=== PATIENT | female | born 1965 | race Caucasian/White ===

== ENCOUNTER 2017-09-26 11:47 | Emergency (ER) | payer BC, SELFPAY ==
[2017-09-26 11:50] VITALS: BP 143/95; PULSE 107; RESP 16; TEMP 36.6; O2SAT 99; BMI 31.4
[2017-09-26] MEDS: 0.9% Normal Saline 1,000 ML 1000 ML IV (12:51)
[2017-09-26] MEDS: Ondansetron 4 MG/2 ML Vial IV (12:53)
[2017-09-26] MEDS: Dicyclomine 20 MG/2 ML Vial IM (12:53)
[2017-09-26 13:18] LABS: Absolute Lymphocyte Count 1.35 X10^3/ul (0.83-4.51); Absolute Neutrophil Count 2.6 X10^3/uL (2.0-7.7); Basophil# 0.01 X10^3/uL; Basophil% 0.2 % (0-1); Eosinophil# 0.07 X10^3/uL; Eosinophils% 1.5 % (0-5); Hematocrit 40.5 % (37-47); Hemoglobin 13.3 g/dl (12.0-15.0); Lymphocyte # 1.35 X10^3/ul (4.0); Lymphocyte % 29.5 % (19-41); Mean Corp Hgb Conc 32.8 g/gl (32-36); Mean Corpuscular Hgb 30.4 pg (27.0-32.0); Mean Corpuscular Volume 92.5 fL (81-99); Mean Platelet Vol. 9.3 fl (6.2-12.0); Monocyte# 0.56 X10^3/uL; Monocyte% 12.3 % (0-10); Neutrophil # 2.58 X10^3/uL (2.7-7.7); Neutrophil % 56.5 % (47-70); Platelet Count 207 K/mm3 (150-450); RBC Distribution Width CV 12.1 % (11.6-14.6); RBC Distribution Width SD 39.8 fl (35.1-43.9); Red Blood Count 4.38 M/mm3 (4.2-5.4); White Blood Count 4.6 K/mm3 (4.4-11.0)
[2017-09-26 13:21] LABS: POSITIVE COUNT NO; POSITIVE DIFFERENTIAL NO; POSITIVE MORPHOLOGY NO
[2017-09-26 14:08] VITALS: RESP 16
[2017-09-26 14:18] LABS: Anion Gap 4 (5-15); BUN 13 mg/dL (7-18); BUN/Creat Ratio 18.8 RATIO (10-20); Calcium,Total 8.7 mg/dL (8.5-10.1); Chloride 111 mmol/L (98-107); Creatinine, Serum 0.69 mg/dL (0.55-1.02); EST Glomerular Filtration Rate 94 mL/min (>60); Est Glom Filt Rate - Afr Amer 114 mL/min (>60); Estimated Creatinine Clearance 95.12 ml/min; Glucose 86 mg/dL (74-106); Potassium 3.6 mmol/L (3.5-5.1); Sodium Level 142 mmol/L (136-145)
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
--- NOTE | 2017-09-26 14:36 | ED.DEP ---
ED Disposition - Plan for ED Patient: Chief Complaint: Nausea/Vomiting/Diarrhea Instructions: ED Gastroenteritis Viral Prescriptions: Ondansetron [Zofran Odt] 4 mg PO Q8H PRN PRN #10 tab PRN Reason: Nausea Dicyclomine HCl [Bentyl] 20 mg PO TIDAC #20 cap Referrals: Carol Campos [Primary Care Provider] - 3-5 Days
[2017-09-26 14:40] VITALS: BP 162/96; PULSE 96; RESP 14; O2SAT 96
== END 2017-09-26 14:45 | disposition home or self-care (01) ==
PROVIDERS: Emergency Provider Emergency Medicine; Family Provider Family Medicine; PCP Family Medicine
DX: A08.4 Viral intestinal infection, unspecified (principal); I25.10 Atherosclerotic heart disease of native coronary artery without angina pectoris; Z79.82 Long term (current) use of aspirin; Z79.899 Other long term (current) drug therapy; Z95.1 Presence of aortocoronary bypass graft; I25.2 Old myocardial infarction
CPT/HCPCS: 80048; 85025; 96361; 96372; 96374; 99283; J7030; J2405

== ENCOUNTER 2018-08-27 01:41 | Emergency (ER) | payer BC, SELFPAY ==
[2018-08-27 01:42] VITALS: BP 162/89; PULSE 70; RESP 16; RESP 18; TEMP 36.4; O2SAT 99; BMI 31.8
[2018-08-27 01:46] VITALS: O2SAT 100
[2018-08-27 02:16] VITALS: O2SAT 100
--- NOTE | 2018-08-27 02:19 | RAD_ITS ---
STUDY: X-RAY CHEST REASON FOR EXAM: Female, 52 years old. Shortness of breath, history of lung cancer TECHNIQUE: Single AP portable view of the chest. COMPARISON: 10/20/2016. FINDINGS: Stable elevation of the right hemidiaphragm. There is distortion involving the right mid and lower lung parenchyma with hyperinflation of the right upper lung. There are surgical clips along the right hilum and apex. No focal consolidation or mass detected. There is no demonstrated pleural abnormality. Normal size heart. Normal mediastinum and alix. Normal visualized pulmonary arteries. Normal visualized aortic arch and descending thoracic aorta. Normal visualized thoracic spine. Normal visualized ribs, clavicles, and shoulders. There is no demonstrated abnormality of the visualized soft tissue structures of the upper abdomen. RAD/Chest 1 View (Portable) IMPRESSION: There is no acute cardiopulmonary disease. Postsurgical changes and scarring as above. Electronically Signed: Ginger Cotton MD at 2:34 EDT , Service support ,
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
[2018-08-27 02:38] LABS: Carboxyhemoglobin Frac (CO) 1.8 % (0.0-1.5)
--- NOTE | 2018-08-27 03:26 | ED.DEP ---
ED Disposition - Plan for ED Patient: Instructions: ED Smoke Inhalation Referrals: Carol Campos [Primary Care Provider] -
[2018-08-27 04:28] VITALS: BP 130/77; PULSE 74; RESP 16; O2SAT 100
[2018-08-27 05:44] VITALS: BP 118/81; PULSE 73; RESP 16; O2SAT 99
== END 2018-08-27 05:44 | disposition home or self-care (01) ==
LOC: ED 02:18
PROVIDERS: Emergency Provider Emergency Medicine; Family Provider Family Medicine; PCP Family Medicine
DX: J70.5 Respiratory conditions due to smoke inhalation (principal); I25.10 Atherosclerotic heart disease of native coronary artery without angina pectoris; I25.2 Old myocardial infarction; Z79.82 Long term (current) use of aspirin
CPT/HCPCS: 36415; 71045; 82375; 99282

== ENCOUNTER 2020-08-03 12:39 | Emergency (ER) | payer SELFPAY ==
[2020-08-03 12:40] VITALS: BP 185/135; PULSE 100; PULSE 98; RESP 15; RESP 16; TEMP 36.5; O2SAT 100; O2SAT 98; BMI 40.5
--- NOTE | 2020-08-03 12:51 | CT_ITS ---
STUDY: CTA CHEST REASON FOR EXAM: Female, 54 years old. Dissection. Chest pain. History of lung cancer. RADIATION DOSAGE (If Supplied By Facility): CTDIvol = ( 17.195 ) mGy, DLP = ( 897.61 ) mGycm TECHNIQUE: The examination was performed with the intravenous administration of IV 100mL Isovue-370. Post-processing of the angiographic images was performed, with multiplanar reformation and 3D reconstruction. Individualized dose optimization techniques were used for this CT. COMPARISON: None. FINDINGS: 6.5 mm hypodense nodule in the lower pole of the right lobe of the thyroid. 2 adjacent 1 cm hypodense nodules are also seen in the isthmus of the thyroid gland. Normal enhancement of the main pulmonary artery and right and left pulmonary arteries. Normal enhancement of the bilateral peripheral pulmonary arteries. There is no demonstrated pulmonary embolism. Normal thoracic aorta and visualized great vessels. There is no demonstrated aortic dissection. There are calcifications of the coronary arteries. Normal mediastinum. Normal hilar regions. Normal visualized trachea and bronchi. Volume loss in the left hemithorax due to prior lobectomy. There is a 1 cm x 0.9 cm noncalcified nodule in the posterior medial aspect of the right upper lobe. Mild increased linear markings in the anterior aspect of the left lower lobe suggestive of scarring. Normal pleura. Normal chest wall structures. There are degenerative changes of thoracic spine. Normal visualized upper abdomen. CT/CTA Chest W/WO Contrast IMPRESSION: No evidence of aortic dissection. 1 cm x 0.9; noncalcified nodule in the posteromedial aspect of the right upper lobe. Electronically Signed: Sergo Beckford MD at 14:34 EDT , Service support ,
--- NOTE | 2020-08-03 12:52 | EKG12_ITS ---
Test Reason : CP Blood Pressure : / mmHG Vent. Rate : 090 BPM Atrial Rate : 090 BPM P-R Int : 172 ms QRS Dur : 106 ms QT Int : 592 ms P-R-T Axes : 064 030 093 degrees QTc Int : 724 ms Normal sinus rhythm Possible Left atrial enlargement Incomplete left bundle branch block Nonspecific ST and T wave abnormality Prolonged QT Abnormal ECG Confirmed by SASHA MANUEL, GERHARD ([id number]), mapping editor SHARONDA DE LA TORRE ([id number]) on 08/05/2020 12:44:18 PM Referred By: IVON Confirmed By:GERHARD BAEZ MD
[2020-08-03 13:13] VITALS: O2SAT 98
[2020-08-03 13:16] LABS: Absolute Lymphocyte Count 1.38 X10^3/uL (0.83-4.51); Absolute Neutrophil Count 3.7 X10^3/uL (2.0-7.7); Basophil# 0.03 X10^3/uL; Basophil% 0.5 % (0-1); Eosinophil# 0.07 X10^3/uL; Eosinophils% 1.2 % (0-5); Hematocrit 41.9 % (37-47); Hemoglobin 13.7 g/dL (12.0-15.0); Lymphocyte # 1.38 X10^3/ul (4.0); Lymphocyte % 24.3 % (19-41); Mean Corp Hgb Conc 32.7 g/dL (32-36); Mean Corpuscular Hgb 30.2 pg (27.0-32.0); Mean Corpuscular Volume 92.5 fL (81-99); Mean Platelet Vol. 9.7 fl (6.2-12.0); Monocyte# 0.48 X10^3/uL; Monocyte% 8.5 % (0-10); NRBC Flagged by Analyzer 0 % (0-5); Neutrophil # 3.71 X10^3/uL (2.7-7.7); Neutrophil % 65.3 % (47-70); Platelet Count 254 K/mm3 (150-450); RBC Distribution Width CV 12.7 % (11.6-14.6); RBC Distribution Width SD 42.9 fl (35.1-43.9); Red Blood Count 4.53 M/mm3 (4.2-5.4); White Blood Count 5.7 K/mm3 (4.4-11.0)
[2020-08-03] MEDS: Aspirin 81 MG TAB.CHEW 324 MG PO (13:22)
[2020-08-03] MEDS: 0.9% Normal Saline 1,000 ML 150 ML IV (13:23)
[2020-08-03 13:38] LABS: Anion Gap 5 (5-15); BUN 15 mg/dL (7-18); BUN/Creat Ratio 14.9 RATIO (10-20); Calcium,Total 8.8 mg/dL (8.5-10.1); Chloride 109 mmol/L (98-107); Creatinine, Serum 1.01 mg/dL (0.55-1.02); EST Glomerular Filtration Rate 60 mL/min (>60); Est Glom Filt Rate - Afr Amer 73 mL/min (>60); Estimated Creatinine Clearance 62.74 ml/min; Glucose 126 mg/dL (74-106); Potassium 3.7 mmol/L (3.5-5.1); Sodium Level 139 mmol/L (136-145)
--- NOTE | 2020-08-03 14:03 | CM.ED ---
Social Work Consult: No PCP/No Insurance Referral source: Self referral. Met with patient in room. 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 Patient agreeable to speak with this high school social science teacher. Patient confirms to not have insurance. Patient reports to be starting a new job and I don't think I qualify for Medicaid. Patient reports to be unable to afford insurance from the market place. Patient states I pay my bills as I can. Patient reports to not be concerned with bills from the hospital and I will do what I can. Active support and listening provided. Patient reports to not have a PCP with main reason being no insurance. Patient reports I hope to have insurance with new job. Patient denies any current community concerns or needs and reports to have positive support from family. Patient declining any community resources. Karla CURRIE, GHISLAINE
[2020-08-03 14:08] VITALS: BP 153/124; PULSE 72; RESP 15; O2SAT 96
[2020-08-03 15:14] VITALS: BP 157/101; PULSE 78; RESP 16; O2SAT 95
--- NOTE | 2020-08-03 15:18 | ED.VISSUMM ---
- ER Visit Summary Date of Service: 08/03/20 Chief Complaint: Upper back pain History of Present Illness: The patient is a 54 F with no primary care physician. She reports that at 9:00 this morning she had the onset of a sharp upper back pain. Was 7 out of 10 at worst and is pain-free now after Tylenol. She reports that with that she had a chest tightness that was 1 out of 10 in severity at worst. She denies any chest pain at this time either. Was worsened by breathing. There was no change with exertion. She reports she was nauseated initially, but is that result has resolved. She reports she has chronic shortness of breath that is unchanged. Patient reports that she has a history of a one-vessel CABG 4 years ago. She also has a history of lung cancer and had a left pneumonectomy both of done which were done at . Since that time she has not seen a plasma cutting machine operator or a primary care physician. Physical Examination: Vitals: Stable. Afebrile. General: Well-nourished and well-developed. Head: Normocephalic atraumatic. Neck: Supple, no lymphadenopathy. No JVD. Nontender. Cardiovascular: Regular rate and rhythm. No murmurs. Respiratory: No respiratory distress. Clear to auscultation bilaterally. Abdominal: Soft, nontender, nondistended, normal bowel sounds. No guarding, rebound, or peritoneal signs. Back: Nontender. Extremities: Nontender, no edema. Skin: Normal color, no rash. Neurologic: Alert and oriented ?3. Cranial nerves II through XII are intact. Normal strength and sensation. Psych: Normal affect. Test Results: EKG is sinus at [address] changes. Troponin is negative. Chem-7 shows a chloride of 109 and glucose 126. CBC is normal. Clinical Impression(s) from Imaging Studies Chest CTA 08/03/20 12:51 IMPRESSION: No evidence of aortic dissection. 1 cm x 0.9; noncalcified nodule in the posteromedial aspect of the right upper lobe. Electronically Signed: Sergo Beckford MD at 14:34 EDT , Service support , Emergency Department Course and Treatment: Patient was treated with aspirin. She is resting comfortably. Treatment Plan: The patient's pain is mainly upper back pain not chest pain. Her chest pain was 1 out of 10 at worst. She denies any chest pain or change in dyspnea exertion in the past months. I had a prolonged discussion with her that she needs to establish a primary care physician for further evaluation of her blood pressure, cholesterol, hemoglobin A1c, evaluation of the thyroid nodule and the right upper lobe nodule. She does understand this. She reports that she is not sure whether or not she has insurance. She will be discharged with instructions for Dr. Gerardo she is next on this for no doc if she does have insurance. [facility] to 5 days if she does not. Return to the emergency department for any worsening symptoms. Disposition: To home in improved and stable condition. Impression: 1. Upper back pain. 2. Thyroid nodule. 3. Right upper lobe nodule. This note was generated with [employer] dictation software. It may contain incorrect words, spelling, and punctuation that were not noted in review of the chart prior to signing ED Disposition - Plan for ED Patient: Instructions: Common Thyroid Problems, ED Chest Pain, Uncertain Cause, ED Pulmonary Nodule, Solitary Referrals: Edna Gerardo MD [STAFF PHYSICIAN] - Tiffany Silvestre [NON-STAFF] - 3-5 Days
[2020-08-03 15:41] VITALS: BP 152/76; PULSE 74; RESP 21; O2SAT 96
== END 2020-08-03 15:50 | disposition home or self-care (01) ==
PROVIDERS: Emergency Provider Emergency Medicine
DX: M54.6 Pain in thoracic spine (principal); E04.1 Nontoxic single thyroid nodule; R91.1 Solitary pulmonary nodule; I25.10 Atherosclerotic heart disease of native coronary artery without angina pectoris; Z85.118 Personal history of other malignant neoplasm of bronchus and lung; Z95.1 Presence of aortocoronary bypass graft
CPT/HCPCS: 71275; 80048; 84484; 85025; 87426; 93005; 96360; 96361; 99284; J7030; Q9967; A4216

== ENCOUNTER 2022-12-12 15:04 | Emergency (ER) | payer MEDICARE, MEDICAID, SELFPAY ==
[2022-12-12 15:05] VITALS: BP 134/91; PULSE 108; RESP 18; TEMP 36.4; O2SAT 98
--- NOTE | 2022-12-12 15:19 | EDS_ITS ---
HPI History of Present Illness Chief Complaint: Hypertension Narrative Narrative: 57-year-old female presenting with concern for elevated blood pressures over the last 4 days. Patient states she can feel it in her head and she feels like her face is flushed and red. She has had a couple episodes of dizziness which she attributed to high blood pressure. His blood pressure at home was 161/94. Patient is very anxious. She states he has a history of lung cancer and has had part of her lower lung removed and has 1 cancerous mass left in the right lung she had been doing radiation therapy with the last one 6 months ago and it is shrinking. Patient also reports a headache for the last 4 days and intermittent blurred vision. She does not have chest pain or any new shortness of breath. No fevers or chills. She has had some nausea without vomiting. She has had diarrhea without black or bloody stools. PFSH PFSH Home Medications aspirin 81 mg tablet,delayed release 81 mg PO DAILY 10/20/16 [History Last Taken Unknown] Allergy/AdvReac Type Severity Reaction Status Date / Time No Known Allergies Allergy Verified 08/03/20 12:40 Social History Smoking Status: Former smoker EXAM Physical Exam Const Vital Signs: 12/12/22 15:05 Temperature 97.6 F L Temperature Source Temporal Pulse Rate 108 H Respiratory Rate 18 Blood Pressure 134/91 H Blood Pressure Mean 105 Pulse Ox 98 Oxygen Delivery Method Room Air Discharge Plan Triage Chief Complaint: Hypertension ED Provider: Celestino Wilson Dx/Rx/DC Orders Prescriptions: No Action aspirin 81 MG tablet 81 mg PO DAILY Primary Care Provider: Tiffany Edward Referrals: Tiffany Edward [Primary Care Provider] -
--- NOTE | 2022-12-12 15:19 | EX.ED.DYSGE1 ---
HPI History of Present Illness Chief Complaint: Hypertension Narrative Narrative: 57-year-old female presenting with concern for elevated blood pressures over the last 4 days. Patient states she can feel it in her head and she feels like her face is flushed and red. She has had a couple episodes of dizziness which she attributed to high blood pressure. His blood pressure at home was 161/94. Patient is very anxious. She states he has a history of lung cancer and has had part of her lower lung removed and has 1 cancerous mass left in the right lung she had been doing radiation therapy with the last one 6 months ago and it is shrinking. Patient also reports a headache for the last 4 days and intermittent blurred vision. She does not have chest pain or any new shortness of breath. No fevers or chills. She has had some nausea without vomiting. She has had diarrhea without black or bloody stools. [facility] Medical History History of PA (myocardial infarction) HTN (hypertension) Lung cancer Home Medications aspirin 81 mg tablet,delayed release 81 mg PO DAILY 10/20/16 [History Last Taken Unknown] lisinopril 10 mg tablet 20 mg PO DAILY 12/12/22 [History Last Taken Unknown] Allergy/AdvReac Type Severity Reaction Status Date / Time No Known Allergies Allergy Verified 08/03/20 12:40 Surgical History History of lobectomy of lung Social History Smoking Status: Former smoker EXAM Physical Exam Const Vital Signs: 12/12/22 15:05 12/12/22 15:42 12/12/22 15:42 Temperature 97.6 F L Temperature Source Temporal Pulse Rate 108 H 85 Respiratory Rate 18 15 Respiratory Effort Respiratory Pattern Blood Pressure 134/91 H 131/75 H Blood Pressure Mean 105 93 Pulse Ox 98 94 94 Oxygen Delivery Method Room Air Room Air Room Air 12/12/22 16:12 12/12/22 17:29 Temperature Temperature Source Pulse Rate 74 Respiratory Rate 16 Respiratory Effort Normal Non-Labored Respiratory Pattern Normal Blood Pressure 116/69 Blood Pressure Mean Pulse Ox 94 Oxygen Delivery Method Positive well nourished General Appearance ED: NAD; Negative for pallor HEENT Reports moist mucous membranes Eyes PERRL and EOMs intact bilaterally General Eye ED: Negative for pale conjunctiva or scleral icterus Chest Wall inspection of chest normal Resp normal respiratory effort and clear to auscultation bilaterally Auscultation: Negative for rales, rhonchi or wheezes Cardio regular rate and regular rhythm GI normal to inspection, nondistended, normoactive bowel sounds Extremity General Extremety ED: Negative for edema or tenderness General Extremity: Negative for edema Neuro oriented x3 and CN's II-XII intact bilaterally Motor Exam: strength 5/5 throughout Psych mental status grossly normal Mood & Affect: anxious Skin no rashes or lesions noted and no wounds General Skin Exam: Negative for jaundice or pallor MDM MDM MDM Narrative Medical decision making narrative: Patient presenting with concern for elevated blood pressures although her blood pressures look good here. Her arrival blood pressure was 134/91. She states she feels flushed and sometimes she is dizzy. She also appears to be very anxious. Patient denies any chest pain has chronic shortness of breath. She is concerned because she has a history of lung cancer and had radiation therapy 6 months ago. She wants to make sure that nothing has worsened. We obtained a CBC to assess white blood cell count, hemoglobin, platelets. CMP to assess liver function, renal function, electrolytes. High-sensitivity troponin EKG to assess for ischemia. Chest x-ray to rule out pneumonia. Patient declines analgesia or any medication. CBC and CMP ultimately unremarkable with exception of a creatinine slightly elevated at 1.18 and her GFR is slightly lower at 50. CT brain was obtained and is negative. Chest x-ray my interpretation shows no acute process. Radiologist interprets this and agrees. EKG shows a sinus rhythm at 90 bpm without sign of ischemic change or ectopy on my interpretation. Patient was counseled on all findings. Recommended she increase her fluid intake. She is to follow-up with her PCP to ensure resolution. She should keep a blood pressure diary. Impression: 1. Elevated blood pressure 2. Headache 3. Dizziness Lab Data Attestation: I reviewed the patient's lab results. Labs: Laboratory Results - last 24 hr 12/12/22 15:35 WBC 5.5 RBC 4.65 Hgb 14.8 Hct 43.3 MCV 93.1 MCH 31.8 MCHC 34.2 RDW Std Deviation 43.5 RDW Coeff of Jose 12.8 Plt Count 230 MPV 9.5 Immature Gran % (Auto) 0.200 Neut % (Auto) 61.5 Lymph % (Auto) 29.5 [place] % (Auto) 6.6 Eos % (Auto) 1.5 Baso % (Auto) 0.7 Absolute Neuts (auto) 3.4 Absolute Lymphs (auto) 1.61 Nucleated RBC % 0 Sodium 143 Potassium 3.4 L Chloride 107 Carbon Dioxide 30.0 Anion Gap 6 BUN 11 Creatinine 1.18 H Est GFR (MDRD) Af Amer 60 Est GFR (MDRD) Non-Af 50 L BUN/Creatinine Ratio 9.3 L Glucose 149 H Calcium 8.9 Total Bilirubin 0.30 Direct Bilirubin 0.06 AST 22 ALT 34 Alkaline Phosphatase 69 Troponin I High Sens 7 Total Protein 7.4 Albumin 3.5 Globulin 3.9 Radiography Diagnostic Testing: Clinical Impression(s) from Imaging Studies Brain CT 12/12/22 15:27 IMPRESSION: Normal unenhanced CT scan of the brain. Electronically Signed: Lenin Ralph MD at 16:11 EDT , Chest X-Ray 12/12/22 15:49 IMPRESSION: Postsurgical changes status post resection of right lung. No acute cardiopulmonary pathology. Electronically Signed: Lenin Ralph MD at 16:52 EDT , Discharge Plan Triage Chief Complaint: Hypertension ED Provider: Celestino Wilson Dx/Rx/DC Orders Instructions: Self-Care for Headaches, ED Dehydration (Adult), ED Dizziness, Uncertain Cause Prescriptions: No Action aspirin 81 MG tablet 81 mg PO DAILY lisinopril 10 mg tablet 20 mg PO DAILY Patient Comments: TAKE 1 TABLET BY MOUTH EVERY DAY Primary Care Provider: [facility] Tiffany Allison Referrals: [facility] Tiffany Allison [Primary Care Provider] - Disposition Disposition: Home, Self Care Discharge Date/Time: 12/12/22 17:29
--- NOTE | 2022-12-12 15:21 | EKG12_ITS ---
Test Reason : HTN Blood Pressure : / mmHG Vent. Rate : 090 BPM Atrial Rate : 090 BPM P-R Int : 164 ms QRS Dur : 112 ms QT Int : 330 ms P-R-T Axes : 064 030 102 degrees QTc Int : 403 ms Normal sinus rhythm Minimal voltage criteria for LVH, may be normal variant ( Carrillo product ) Nonspecific T wave abnormality Abnormal ECG Confirmed by KALYN MANUEL, TANA ([id number]), food expeditor JANES SANDHU ([id number]) on 12/17/2022 8:09:27 AM Referred By: Confirmed By:NOMI MCCAIN MD
--- NOTE | 2022-12-12 15:27 | CT_ITS ---
STUDY: CT BRAIN WITHOUT CONTRAST REASON FOR EXAM: Female, 57 years old. headache RADIATION DOSAGE (If Supplied By Facility): CTDIvol = ( 44.99 ) mGy, DLP = ( 796.11 ) mGycm TECHNIQUE: Transaxial CT imaging of the brain was performed without administration of intravenous contrast material. Individualized dose optimization techniques were used for this CT. COMPARISON: July 04, 2015. FINDINGS: Normal soft tissue structures. Normal calvarium. Mild calcific plaquing of the cavernous carotids Normal size ventricles and extra-axial spaces for the patient''s age. Normal white matter tracts of the cerebral hemispheres. Normal basal ganglia and thalami. Normal brainstem. Normal cerebellum. There is no intracranial hemorrhage. There are no findings of an acute ischemic infarction. Normal visualized paranasal sinuses. CT/Brain/Head without Contrast IMPRESSION: Normal unenhanced CT scan of the brain. Electronically Signed: Lenin Ralph MD at 16:11 EDT ,
[2022-12-12 15:42] VITALS: BP 131/75; PULSE 85; RESP 15; O2SAT 94
--- NOTE | 2022-12-12 15:49 | RAD_ITS ---
STUDY: X-RAY CHEST REASON FOR EXAM: Female, 57 years old. chest pain TECHNIQUE: AP portable COMPARISON: August 27, 2018. FINDINGS: Elevated right hemidiaphragm and changes status post partial resection of the right lung.. There is no demonstrated pleural abnormality. Normal size heart. Normal mediastinum and alix. Normal visualized pulmonary arteries. Normal visualized aortic arch and descending thoracic aorta. Dorsal spine demonstrates degenerative change. Normal visualized ribs, clavicles, and shoulders. There is no demonstrated abnormality of the visualized soft tissue structures of the upper abdomen. RAD/Chest 1 View (Portable) IMPRESSION: Postsurgical changes status post resection of right lung. No acute cardiopulmonary pathology. Electronically Signed: Lenin Ralph MD at 16:52 EDT ,
[2022-12-12 15:51] LABS: Absolute Lymphocyte Count 1.61 X10^3/uL (0.83-4.51); Absolute Neutrophil Count 3.4 X10^3/uL (2.0-7.7); Basophil# 0.04 X10^3/uL; Basophil% 0.7 % (0-1); Eosinophil# 0.08 X10^3/uL; Eosinophils% 1.5 % (0-5); Hematocrit 43.3 % (37-47); Hemoglobin 14.8 g/dL (12.0-15.0); Lymphocyte # 1.61 X10^3/ul (0.83-4.51); Lymphocyte % 29.5 % (19-41); Mean Corp Hgb Conc 34.2 g/dL (32-36); Mean Corpuscular Hgb 31.8 pg (27.0-32.0); Mean Corpuscular Volume 93.1 fL (81-99); Mean Platelet Vol. 9.5 fl (6.2-12.0); Monocyte# 0.36 X10^3/uL; Monocyte% 6.6 % (0-10); NRBC Flagged by Analyzer 0 % (0-5); Neutrophil # 3.35 X10^3/uL (2.7-7.7); Neutrophil % 61.5 % (47-70); Platelet Count 230 K/mm3 (150-450); RBC Distribution Width CV 12.8 % (11.6-14.6); RBC Distribution Width SD 43.5 fl (35.1-43.9); Red Blood Count 4.65 M/mm3 (4.2-5.4); White Blood Count 5.5 K/mm3 (4.4-11.0)
[2022-12-12 16:06] LABS: AST(SGOT) 22 U/L (15-37); Alanine Aminotransfer ALT/SGPT 34 U/L (13-56); Albumin, Serum 3.5 g/dL (3.2-5.0); Alkaline Phosphatase 69 U/L (45-117); Anion Gap 6 (5-15); BUN 11 mg/dL (7-18); BUN/Creat Ratio 9.3 RATIO (10-20); Bilirubin, Direct 0.06 mg/dL (0.00-0.30); Calcium,Total 8.9 mg/dL (8.5-10.1); Chloride 107 mmol/L (98-107); Creatinine, Serum 1.18 mg/dL (0.55-1.02); EST Glomerular Filtration Rate 50 mL/min (>60); Est Glom Filt Rate - Afr Amer 60 mL/min (>60); Globulin 3.9 g/dL (2.2-4.2); Glucose 149 mg/dL (74-106); Potassium 3.4 mmol/L (3.5-5.1); Protein, Total 7.4 g/dL (6.4-8.2); Sodium Level 143 mmol/L (136-145); Troponin-I HS 7 pg/mL (3.0-54.0)
[2022-12-12 17:29] VITALS: BP 116/69; PULSE 74; RESP 16; O2SAT 94
== END 2022-12-12 17:29 | disposition home or self-care (01) ==
PROVIDERS: Emergency Provider Student in an Organized Health Care Education/Training Program; Visit Provider Student in an Organized Health Care Education/Training Program
DX: I10 Essential (primary) hypertension (principal); R42 Dizziness and giddiness; R51.9 Headache, unspecified; I25.2 Old myocardial infarction; Z79.82 Long term (current) use of aspirin; Z79.899 Other long term (current) drug therapy; Z87.891 Personal history of nicotine dependence
CPT/HCPCS: 70450; 71045; 80048; 80076; 84484; 85025; 93005; 99283; A4216

== ENCOUNTER 2023-07-16 18:11 | Emergency (ER) | payer MEDICARE, MEDICAID, SELFPAY ==
[2023-07-16] VITALS (7 sets, daily range): BP systolic 121–195; BP diastolic 83–123; PULSE 99–125; RESP 13–27; TEMP 36.7–36.9; O2SAT 93–96; BMI 45.9
--- NOTE | 2023-07-16 18:40 | US_ITS ---
EXAM: US ABDOMEN LIMITED, RIGHT UPPER QUADRANT CLINICAL INDICATION: Right upper quadrant pain TECHNIQUE: Real-time ultrasound of the right upper quadrant with image documentation. COMPARISON: No relevant prior studies available. FINDINGS: LIVER: Echogenic/fatty liver. No intrahepatic biliary ductal dilation. No focal hepatic lesions. GALLBLADDER: Solitary gallstone measuring up to 2.4 cm. No pericholecystic fluid. Sonographic Mota''s sign is absent. No gallbladder wall thickening is demonstrated. COMMON BILE DUCT: Common bile duct measures 4 mm. The proximal common bile duct is within normal limits for the patient''s age. PANCREAS: Visualized pancreas is unremarkable with no main pancreatic ductal dilatation. RIGHT KIDNEY: Right kidney is normal. There is no hydronephrosis. No shadowing calculus. No focal lesion or perinephric collection is demonstrated. FREE FLUID: No ascites. US/Gallbladder IMPRESSION: 1. Hepatic steatosis 2. Cholelithiasis but no acute cholecystitis. Electronically Signed: Alphonse Ballard MD at 20:34 EDT ,
--- NOTE | 2023-07-16 18:41 | EKG12_ITS ---
Test Reason : CHEST PAIN Blood Pressure : / mmHG Vent. Rate : 120 BPM Atrial Rate : 120 BPM P-R Int : 168 ms QRS Dur : 106 ms QT Int : 292 ms P-R-T Axes : 069 047 110 degrees QTc Int : 412 ms Sinus tachycardia Minimal voltage criteria for LVH, may be normal variant ( Carrillo product ) Nonspecific ST and T wave abnormality Abnormal ECG Confirmed by MILENA MANUEL, MONO ([id number]), silverware supervisor JANES SANDHU ([id number]) on 07/18/2023 6:17:49 AM Referred By: VIRGIE Confirmed By:MONO ABBOTT MD
[2023-07-16 18:53] LABS: Absolute Lymphocyte Count 1.82 X10^3/uL (0.83-4.51); Absolute Neutrophil Count 5.2 X10^3/uL (2.0-7.7); Basophil# 0.04 X10^3/uL; Basophil% 0.5 % (0-1); Eosinophil# 0.06 X10^3/uL; Eosinophils% 0.8 % (0-5); Hematocrit 43.7 % (37-47); Hemoglobin 14.2 g/dL (12.0-15.0); Lymphocyte # 1.82 X10^3/ul (0.83-4.51); Mean Corp Hgb Conc 32.5 g/dL (32-36); Mean Corpuscular Hgb 29.9 pg (27.0-32.0); Mean Platelet Vol. 9.6 fl (6.2-12.0); Monocyte# 0.76 X10^3/uL; Monocyte% 9.6 % (0-10); NRBC Flagged by Analyzer 0 % (0-5); Neutrophil # 5.21 X10^3/uL (2.7-7.7); Neutrophil % 65.7 % (47-70); Platelet Count 288 K/mm3 (150-450); RBC Distribution Width CV 12.1 % (11.6-14.6); RBC Distribution Width SD 41.2 fl (35.1-43.9); Red Blood Count 4.75 M/mm3 (4.2-5.4); White Blood Count 7.9 K/mm3 (4.4-11.0)
[2023-07-16 19:12] LABS: ALB/GLOB Ratio 0.9 RATIO (0.9-2.4); AST(SGOT) 14 U/L (15-37); Alanine Aminotransfer ALT/SGPT 25 U/L (13-56); Albumin, Serum 3.7 g/dL (3.2-5.0); Alkaline Phosphatase 72 U/L (45-117); Anion Gap 5 (5-15); BUN 12 mg/dL (7-18); Calcium,Total 9.2 mg/dL (8.5-10.1); Chloride 105 mmol/L (98-107); Creatinine, Serum 1.09 mg/dL (0.55-1.02); EST Glomerular Filtration Rate 55 mL/min (>60); Est Glom Filt Rate - Afr Amer 66 mL/min (>60); Estimated Creatinine Clearance 81.71 ml/min; Globulin 4.1 g/dL (2.2-4.2); Glucose 172 mg/dL (74-106); Lipase 246 U/L (13-75); Potassium 3.9 mmol/L (3.5-5.1); Protein, Total 7.8 g/dL (6.4-8.2); Sodium Level 140 mmol/L (136-145); Troponin-I HS 12 pg/mL (3.0-54.0)
[2023-07-16] MEDS: Morphine 4 MG/ML Syringe IV (19:34)
[2023-07-16] MEDS: Ondansetron 4 MG/2 ML Vial IV (19:34)
--- NOTE | 2023-07-16 19:37 | EX.ED.DYSGE1 ---
HPI History of Present Illness Chief Complaint: Chest Pain Detail of Chief Complaint: Chest pain Informant: patient Onset/Context/Timing Onset: Days (2 days ago) Context: Sudden Onset Timing: Continuous Quality: Sense of fullness in the epigastric lower anterior chest Location: Xiphoid region Current Severity: Mild Maximum Severity: Moderate Worsened by: Nothing Relieved by: Nothing Associated Symptoms Associated Symptoms: Nausea Narrative Narrative: Patient is a 57-year-old woman who presents with full sensation in the xiphoid region that radiates through to her back started 2 days ago after eating heavily dinner . Patient was asked what made him believe dinner is. She informed me everything is fried. She denies fever, chills night sweats. Denies weight loss or weight gain. She denies history of diabetes, hypercholesterolemia or cardiac disease. She does have history of hypertension. She denies history of PE or DVT however she was diagnosed with lung cancer requiring resection of her right lower lobe. She had a second primary involving the right upper lobe. She received radiation therapy by Dr. Gunter. She denies leg pain, swelling discoloration. She denies headache, visual, ocular auditory symptoms. She denies dyspnea, dyspnea on exertion, orthopnea or PND. She denies black or maroon-colored stool prior to taking Pepto-Bismol. She states her stools not black the stool is not sticky and does not have a unusual odor. Prior similar symptoms: No Recent Illness/Hospitalization: No PFSH PFS Medical History History of SC (myocardial infarction) HTN (hypertension) Lung cancer Home Medications aspirin 81 mg tablet,delayed release 81 mg PO DAILY 10/20/16 [History Last Taken Unknown] lisinopril 10 mg tablet 20 mg PO DAILY 12/12/22 [History Last Taken Unknown] hydrocodone-acetaminophen 5-325mg 5mg-325mg 1 tab PO Q6H PRN PRN Pain 3 days #10 TABLETS 07/16/23 [Rx Last Taken Unknown] ketorolac 10 mg tablet 10 mg PO Q6H PRN pain 5 days #20 tabs 07/16/23 [Rx Last Taken Unknown] Allergy/AdvReac Type Severity Reaction Status Date / Time No Known Allergies Allergy Verified 07/16/23 18:46 Surgical History History of lobectomy of lung Social History (Updated 07/16/23 @ 19:[address] Marcos Ziegler MD) household members: other Smoking Status: Former smoker ROS ROS ED Constitutional Constitutional ED: Denies chills, fever(s), subjective, sweats or weight loss Eyes Eyes: Denies blurry vision, change in vision or diplopia ENT ENT ED: Denies ear pain, rhinorrhea or sore throat Cardiovascular Cardiovascular: Reports chest pain; Denies orthopnea, palpitations, paroxysmal nocturnal dyspnea or racing heartbeat Respiratory/Chest Respiratory/Chest: Denies cough, dyspnea, dyspnea on exertion, orthopnea or paroxysmal nocturnal dyspnea Gastrointestinal Gastrointestinal: Reports abdominal pain and nausea; Denies constipation, diarrhea, melena or vomiting Genitourinary Genitourinary ED: Denies dysuria, hematuria or urinary frequency Musculoskeletal Musculoskeletal: Reports back pain; Denies arthralgias, myalgias or neck pain Integumentary Denies rash Neurologic Neurologic: Denies headache(s), paresthesias or weakness Psychiatric Psychiatric: Reports anxiety Hematologic/Lymphatic Hematologic/Lymphatic: Reports systems reviewed and no addt'l complaints, except as documented EXAM Physical Exam Const Vital Signs: 07/16/23 18:12 07/16/23 18:38 07/16/23 18:39 Temperature 98.2 F 98.1 F Temperature Source Temporal Temporal Pulse Rate 125 H 125 H Respiratory Rate 24 H 27 H Respiratory Effort Normal Blood Pressure 168/123 H 192/110 H Blood Pressure Mean 138 137 Pulse Ox 95 94 Oxygen Delivery Method Room Air Room Air 07/16/23 19:12 07/16/23 20:00 07/16/23 21:00 Temperature Temperature Source Pulse Rate 119 H 115 H 120 H Respiratory Rate 15 18 18 Respiratory Effort Blood Pressure 187/115 H 195/122 H 164/83 H Blood Pressure Mean 139 146 110 Pulse Ox 96 94 96 Oxygen Delivery Method Room Air Room Air Positive well nourished, well developed and obese General Appearance ED: well developed and NAD; Negative for cyanotic, diaphoretic or pallor Nutritional Appearance: obese HEENT Reports moist mucous membranes and dry mucous membranes HEENT Narrative: Head is atraumatic and normocephalic. Ears normal. Nares patent. Posterior pharynx is normal. Mouth ED: Yes dry mucous membranes Mouth: dry mucous membranes Eyes PERRL and EOMs intact bilaterally General Eye ED: Negative for pale conjunctiva or scleral icterus Neck no lymphadenopathy, supple and no JVD Chest Wall inspection of chest normal and palpation of chest normal Chest Narrative: There is no chest wall tenderness. Resp normal respiratory effort and clear to auscultation bilaterally Cardio regular rhythm, S1 normal heart sound, S2 normal heart sound and no murmurs Rate: tachycardic GI normal to inspection, nondistended, normoactive bowel sounds, non-distended and no masses; Negative for non-tender or hepatosplenomegaly Auscultation: hyperactive bowel sounds Palpation: soft, tender epigastric, RUQ and Mota's sign and guarding RUQ; Negative for splenomegaly, mass or rebound tenderness present Back/Spine no CVA tenderness Cervical Spine: Negative for cervical spine tenderness Thoracic Spine / Upper Back: Negative for thoracic spinal tenderness Extremity normal to inspection General Extremety ED: Negative for tenderness Neuro oriented x3, CN's II-XII intact bilaterally and no sensory deficits noted Sensorium / Orientation: alert Psych mental status grossly normal Skin no rashes or lesions noted, no wounds and skin turgor normal General Skin Exam: Negative for jaundice or pallor MDM MDM MDM Narrative Medical decision making narrative: Differential diagnosis regarding to the right upper quadrant pain is cholelithiasis with biliary colic, cholecystitis, abdominal pain of unknown etiology, atypical presentation for renal disease and lower lobe pneumonia. With history of lung cancer tachycardia tachypnea complaining of shortness of breath and pleuritic component of chest pain need to evaluate for PE. Will obtain D-dimer. CBC was obtained to assess white count differential. Comprehensive metabolic panel to assess renal function transaminases. Lipase was obtained to evaluate for pancreatitis. Patient was medicated with Zofran for nausea and morphine for her pain. Ultrasound of the right upper quadrant was obtained. Lab Data Attestation: I reviewed the patient's lab results. Lab results narrative: White count is normal at 7.9 thousand with no shift. Comprehensive metabolic panel is remarkable for creatinine of 1.09 with estimated GFR 55. Transaminases, total bili and alkaline phosphatase are normal. Lipase is elevated to 46 which is greater than 3 times normal. Labs: Laboratory Results - last 24 hr 07/16/23 18:30 WBC 7.9 RBC 4.75 Hgb 14.2 Hct 43.7 MCV 92.0 MCH 29.9 MCHC 32.5 RDW Std Deviation 41.2 RDW Coeff of Jose 12.1 Plt Count 288 MPV 9.6 Immature Gran % (Auto) 0.400 Neut % (Auto) 65.7 Lymph % (Auto) 23.0 Tama % (Auto) 9.6 Eos % (Auto) 0.8 Baso % (Auto) 0.5 Absolute Neuts (auto) 5.2 Absolute Lymphs (auto) 1.82 Nucleated RBC % 0 D-Dimer Quant (PE/DVT) 1.81 H* Sodium 140 Potassium 3.9 Chloride 105 Carbon Dioxide 30.0 Anion Gap 5 BUN 12 Creatinine 1.09 H Estim Creat Clear Calc 81.71 Est GFR (MDRD) Af Amer 66 Est GFR (MDRD) Non-Af 55 L BUN/Creatinine Ratio 11.0 Glucose 172 H Calcium 9.2 Total Bilirubin 0.30 AST 14 L ALT 25 Alkaline Phosphatase 72 Troponin I High Sens 12 Total Protein 7.8 Albumin 3.7 Globulin 4.1 Albumin/Globulin Ratio 0.9 Lipase 246 H Radiography Diagnostic Testing: Clinical Impression(s) from Imaging Studies Gallbladder Ultrasound 07/16/23 18:40 IMPRESSION: 1. Hepatic steatosis 2. Cholelithiasis but no acute cholecystitis. Electronically Signed: Alphonse Ballard MD at 20:34 EDT , Chest CTA 07/16/23 21:04 IMPRESSION: 1. Small dense airspace lesion/disease at the right upper thorax raises concern for pneumonia, neoplasm or postsurgical change. Correlate with surgical history and please compared to any available prior studies (none available at the time of this interpretation). 2. Emphysema. 3. Limited assessment for PE due to suboptimal opacification of the pulmonary arteries although there is no embolism or central PE. AIDOC was utilized to assist in identifying pertinent positive findings. Electronically Signed: Alphonse Ballard MD at 22:26 EDT , EKG Initial EKG: Attestation: I personally reviewed and interpreted this EKG as follows: Interpretation: Sinus Tachycardia (Rate is 120. [place] interval is 168 ms. Cures duration 106 ms. QT durations are 92 ms. [facility] is normal. There is evidence of LVH.) Discharge Plan Triage Chief Complaint: Chest Pain ED Provider: Marcos Ziegler Dx/Rx/DC Orders Clinical Impression: Infiltrate of upper lobe of right lung present on imaging study, Sinus tachycardia seen on moving worker, Hypertension, Cholelithiasis Instructions: ED Gallstones with Biliary Colic Prescriptions: New hydrocodone-acetaminophen [hydrocodone-acetaminophen] 5-325 mg tablet 1 tab PO Q6H PRN PRN (Reason: Pain) 3 Days Qty: 10 0RF ketorolac 10 mg tablet 10 mg PO Q6H PRN (Reason: pain) 5 Days Qty: 20 0RF No Action aspirin 81 MG tablet 81 mg PO DAILY lisinopril 10 mg tablet 20 mg PO DAILY Primary Care Provider: [facility] Tiffany Allison Referrals: Abel Lua MD [Med Staff - Active Staff] [facility] - 3-5 Days if not improving Disposition Disposition: Home, Self Care
[2023-07-16 19:50] LABS: D-Dimer Quantitative (DVT/PE) 1.81 FEU/ug/m (0.27-0.49)
--- NOTE | 2023-07-16 21:04 | CT_ITS ---
EXAM: CT ANGIOGRAPHY CHEST WITHOUT AND WITH INTRAVENOUS CONTRAST CLINICAL INDICATION: Dyspnea, tachycardia, elevated D-dimer hx CA TECHNIQUE: Helically acquired angiography images were obtained of the chest without and with intravenous contrast. CTDIvol = ( 12.67 ) mGy, DLP = ( 521.15 ) mGycm This CT exam was performed using one or more of the following dose reduction techniques: automated exposure control, adjustment of the mA and/or kV according to patient size, and/or use of iterative reconstruction technique. MIP reconstructed images were created and reviewed. CONTRAST: IV 100mL [id number] COMPARISON: No relevant prior studies available. FINDINGS: PULMONARY ARTERIES: Suboptimal opacification of the pulmonary arteries. No gross central PE. AORTA: No aortic aneurysm or dissection. GREAT VESSELS OF AORTIC ARCH: Unremarkable. Normal in caliber. No evidence of dissection. LUNGS AND PLEURAL SPACES: Small dense airspace lesion/disease at the right upper thorax raises concern for pneumonia, neoplasm or postsurgical change. This area measures 5.2 x 4.2 cm roughly. Correlate with surgical history and please compared to any available prior studies (none available at the time of this interpretation). At least moderate centrilobular/paraseptal emphysema. No other consolidation. No pleural effusions or pneumothorax. HEART: Unremarkable. Heart size is normal. No pericardial effusion. No significant coronary artery calcifications. MEDIASTINUM: Unremarkable. No mediastinal or hilar adenopathy. Esophagus is unremarkable. No hiatal hernia. THYROID: Heterogeneous with possible very small right thyroid hypodense nodules. BONES/JOINTS: Degenerative changes of the spine. No unusual lytic or sclerotic lesions of bone. GALLBLADDER AND BILE DUCTS: Cholelithiasis. No acute cholecystitis. CT/CTA Chest W/WO Contrast IMPRESSION: 1. Small dense airspace lesion/disease at the right upper thorax raises concern for pneumonia, neoplasm or postsurgical change. Correlate with surgical history and please compared to any available prior studies (none available at the time of this interpretation). 2. Emphysema. 3. Limited assessment for PE due to suboptimal opacification of the pulmonary arteries although there is no embolism or central PE. AIDOC was utilized to assist in identifying pertinent positive findings. Electronically Signed: Alphonse Ballard MD at 22:26 EDT ,
[2023-07-16] MEDS: Ketorolac 15 MG/ML Vial IV (21:07)
[2023-07-16] MEDS: Doxycycline 100 MG CAPSULE PO (23:50)
== END 2023-07-16 23:52 | disposition home or self-care (01) ==
PROVIDERS: Emergency Provider Emergency Medicine; Visit Provider Emergency Medicine
DX: R00.0 Tachycardia, unspecified (principal); I10 Essential (primary) hypertension; K80.20 Calculus of gallbladder without cholecystitis without obstruction; I25.2 Old myocardial infarction; E66.9 Obesity, unspecified; Z87.891 Personal history of nicotine dependence
CPT/HCPCS: 71275; 76705; 80053; 83690; 84484; 85025; 85379; 93005; 96374; 96375; 99284; Q9967; A4216; J2405

== ENCOUNTER → 2023-07-31 | Outpatient (CLI) | payer MEDICARE, MEDICAID, SELFPAY ==
[2023-07-31 12:59] LABS: Magnesium 2.5 mg/dL (1.6-2.6)
== END | disposition home or self-care (01) ==
LOC: LAB 10:53
PROVIDERS: Referring Provider Internal Medicine Cardiovascular Disease; Visit Provider Internal Medicine Cardiovascular Disease
DX: J44.9 Chronic obstructive pulmonary disease, unspecified (principal); R06.02 Shortness of breath; I10 Essential (primary) hypertension; I25.10 Atherosclerotic heart disease of native coronary artery without angina pectoris; Z95.1 Presence of aortocoronary bypass graft
CPT/HCPCS: 36415; 83735

== ENCOUNTER → 2023-08-01 | Outpatient (CLI) | payer MEDICARE, MEDICAID, SELFPAY ==
--- NOTE | 2023-08-01 06:01 | ECHOD_ITS ---
Reason For Study: DYSPNEA Procedure This was a 2D Doppler, Color Flow transthoracic echocardiogram. Exam performed in department. Left Ventricle Normal LV size. The left ventricular ejection fraction is 50 %. Diastolic function is indeterminate. Right Ventricle Normal right ventricle. Atria The left and right atria are normal. Mitral Valve Mild (1+) mitral valve insufficiency. Tricuspid Valve Normal tricuspid valve. Aortic Valve Trisinus/trileaflet aortic valve. Pulmonic Valve The pulmonic valve is not well visualized. Great Vessels Normal sized aortic root. Pericardium/Pleural No pericardial effusion. MMode/2D Measurements & Calculations LVIDd: 5.6 cm IVSd: 0.95 cm Ao root diam: 3.2 cm LVIDs: 4.2 cm LVPWd: 0.84 cm RVDd: 3.0 cm FS: 24.5 % LAV(MOD-bp): 62.1 ml LVAd ap4: 28.7 cm2 SV(MOD-sp4): 46.8 ml LAV(MOD-bp) Indexed: 26.3 ml/m2 LVLd ap4: 7.1 cm LAV(MOD-sp2): 64.4 ml EDV(MOD-sp4): 93.3 ml LAV(MOD-sp4): 60.0 ml EDV(sp4-el): 97.9 ml LVAs ap4: 17.5 cm2 LVLs ap4: 5.9 cm ESV(MOD-sp4): 46.5 ml ESV(sp4-el): 44.2 ml EF(MOD-sp4): 50.1 % EF(sp4-el): 54.8 % SV(sp4-el): 53.7 ml LA A4 area: 19.0 cm2 LA dimension(2D): 4.0 cm RA A4 area: 12.0 cm2 TAPSE: 2.0 cm Time Measurements MV dec time: 0.23 sec Doppler Measurements & Calculations MV E max vernon: 72.5 cm/sec Lat Peak E' Vernon: 8.3 cm/sec Med Peak E' Vernon: 6.9 cm/sec MV A max vernon: 83.8 cm/sec E/E' lat: 8.7 E/E' med: 10.6 MV E/A: 0.87 MV V2 max: 115.5 cm/sec MV P1/2t max vernon: 115.5 cm/sec Ao V2 max: 145.1 cm/sec MV max P.3 mmHg MV P1/2t: 61.6 msec Ao max P.5 mmHg MV V2 mean: 64.8 cm/sec Ao V2 mean: 106.0 cm/sec MV mean P.9 mmHg MV dec slope: 549.2 cm/sec2 Ao mean P.8 mmHg MV V2 VTI: 33.8 cm MVA(P1/2t): 3.6 cm2 Ao V2 VTI: 32.7 cm AV (velocity ratio): 0.71 LV V1 max: 94.2 cm/sec PA V2 max: 113.0 cm/sec LV V1 max P.6 mmHg PA V2 mean: 72.9 cm/sec LV V1 mean P.0 mmHg LV V1 mean: 66.7 cm/sec LV V1 VTI: 23.3 cm ECHO/Echo Complete Interpretation Summary There is a moderate sized apical, septal, and inferior wall motion abnormality with hypokinesis of the segments. The left ventricular ejection fraction is 50 %. Diastolic function is indeterminate. Mild (1+) mitral valve insufficiency. Ordering Physician: Dayana Pereira Referring Physician: Arlene Connolly Performed By: Yulia Gage, RDCS, RVT
--- NOTE | 2023-08-05 08:35 | STRESSREP ---
Stress Test Report Date: 08/01/2023 Procedure: Pharmacologic stress nuclear imaging study Indications: Dyspnea on exertion Consent: Per the patient Procedure: The patient underwent pharmacologic (Regadenoson 0.4mg ) evaluation with a peak heart rate of 99 beats per minute (61%predicted maximal heart rate) and a peak blood pressure of 132/88 mmHg. The baseline ECG demonstrated sinus rhythm. The peak pharmacologic ECG demonstrated no ischemic changes. Occasional PVC pretest and postinfusion. There was no complaint of chest discomfort during pharmacologic infusion or recovery. The patient was injected with 14.7 millicuries of technetium 99m Cardiolite and subsequently rest SPECT Cardiolite nuclear imaging was obtained in the horizontal long, vertical long, and short axis views. The patient underwent pharmacologic (Regadenoson) evaluation. The patient was injected with 44.8 millicuries of technetium 99m Cardiolite and subsequently stress SPECT Cardiolite nuclear imaging was obtained in the horizontal long, vertical long, and short axis views. A gated Cardiolite study at peak stress was obtained. The examination was stopped secondary to completion of protocol. Rest and stress SPECT Cardiolite nuclear imaging status post realignment, normalization, and attenuation correction demonstrate no fixed or reversible perfusion defects. There is end systolic thickening and brightening. The gated Cardiolite study demonstrates myocardial thickening and inward wall motion. The reported LVEF is 56%. Impression: 1. Pharmacologic (Regadenoson) evaluation 2. Peak pharmacologic ECG with no ischemic change. 3. Occasional PVCs. 5. Rest and stress SPECT Cardiolite nuclear imaging demonstrate relative uniform tracer uptake and myocardial perfusion appearing within normal limits. 6. The gated Cardiolite study reports an LVEF of 56%. This note was generated with Offert[employer] software. It may contain incorrect words, spelling, and punctuation that were not noted in checking the note before signing.
== END | disposition home or self-care (01) ==
PROVIDERS: PCP Nurse Practitioner Family; Referring Provider Internal Medicine Cardiovascular Disease; Visit Provider Internal Medicine Cardiovascular Disease
DX: Z01.810 Encounter for preprocedural cardiovascular examination (principal); Z95.1 Presence of aortocoronary bypass graft; I10 Essential (primary) hypertension; R06.02 Shortness of breath; R06.09 Other forms of dyspnea
CPT/HCPCS: 78452; 93017; 93306; A9500; J2785

== ENCOUNTER 2023-08-09 05:46 | Day surgery (SDC) | payer MEDICARE, MEDICAID, SELFPAY ==
[2023-08-09] VITALS (10 sets, daily range): BP systolic 128–178; BP diastolic 72–83; PULSE 70–85; RESP 14–16; TEMP 36.1–36.7; O2SAT 92–98; BMI 43.2
--- NOTE | 2023-08-09 06:24 | EKG12_ITS ---
Test Reason : PRE-OP Blood Pressure : / mmHG Vent. Rate : 077 BPM Atrial Rate : 077 BPM P-R Int : 178 ms QRS Dur : 118 ms QT Int : 400 ms P-R-T Axes : 064 027 094 degrees QTc Int : 452 ms Normal sinus rhythm Incomplete left bundle branch block Minimal voltage criteria for LVH, may be normal variant ( [place] product ) Nonspecific T wave abnormality Abnormal ECG Confirmed by Abel Jaquez ([id number]), research editor JOSUÉ SAUCEDO ([id number]) on 08/12/2023 1:28:41 PM Referred By: Abel Lua Confirmed By:Abel Jaquez
[2023-08-09] MEDS: Lactated Ringers 1,000 ML 15 ML IV (06:37)
--- NOTE | 2023-08-09 06:43 | HP.PCM_ITS ---
History and Physical Date of Admission: 08/09/23 Date of Service: 07/24/23 MR#: [id number] Acct: [id number] Name: VIV NICOLE Rep #: [id number] : 1965 Provider: Dr. Abel Lua MD Age/Sex: 57/F Location: [facility] Status: Signed Intake Vital Signs 07/15/2417:12 07/24/2407:47 Height 5 ft 8 in 5 ft 8 in Weight: 302 lb BMI 45.9 BP 142/84 H Blood Pressure Location Rt brachial Position Sitting Respiration 18 Pulse 73 Pulse Oximetry (%) 96 Intake Visit Reasons: GALLSTONES ER FU Chief Complaint: gallstones Service Engine Repairer Required: No Is patient in pain?: Yes (RUQ abd pain) Allergies No Known Allergies Allergy (Verified 07/24/23 08:48) Medications aspirin 81 mg tablet,delayed release 81 mg PO DAILY 10/20/16 [History Confirmed 07/24/23] lisinopril 10 mg tablet 20 mg PO DAILY 12/12/22 [History Confirmed 07/24/23] doxycycline monohydrate 100 mg capsule 100 mg PO BID #14 CAPSULES 07/16/23 [Rx Confirmed 07/24/23] albuterol sulfate 90 mcg/actuation aerosol inhaler inhalation 07/24/23 [History Confirmed 07/24/23] escitalopram oxalate 20 mg tablet 20 mg PO QDAY 07/24/23 [History Confirmed 07/24/23] PFSH Medical History (Updated 07/24/23 @ 17:[address] Abel Lua MD) History of PA (myocardial infarction) HTN (hypertension) Lung cancer Surgical History (Updated 07/24/23 @ 17:[address] Abel Lua MD) History of lobectomy of lung History of open heart surgery Family History (Updated 07/24/23 @ 08:47 by Sumaya Cox) Mother Cancer lungFather CVA (cerebral vascular accident) Heart disease Myocardial infarction Social History (Updated 07/16/23 @ 19:[address] Marcos Ziegler MD) household members: other Smoking Status: Former smoker HPI HPI HPI: Patient is a 57-year-old female who presents for follow-up of a recent ER visit on 07/16/2023 where she initially described chest pain but was found to have a negative cardiac workup and ultrasound showed gallstones. She shares that she believes she has had discomfort that she was not able to properly attribute for the last couple of months. She describes pain as starting on the side, back and right upper quadrant. She notes that her most recent experience of this pain that led her to the ER began at approximately 4 PM and she initially tried to ignore the discomfort but when it progressed to include a significant rise in her blood pressure she became concerned that she was having another heart attack and decided to present. She is unable to recall the meal she consumed the evening of her presentation, however, she shares that 2 days prior to her presentation she was hosting a friend and decided to make a dinner of fried chicken, fried potatoes and corn. She was reportedly informed by emergency medicine that this could have caused the discomfort that led to her ER presentation. She states that as she thinks about this discomfort almost always it occurs in the evening time. She denies any associated nausea. She does report that her bowel movements have been different for the past couple of mo nths and that all [I] have is diarrhea. She confesses that she has never had a colonoscopy. She denies any blood in her stools. She denies any straining. She does report that her diet is high in fiber. She denies any family history of diverticulitis, inflammatory bowel disease, or colon cancer. She shares that despite the pain onset generally occurring at night she has it even now. She relates that her meal for dinner last night consisted of salad with grilled chicken but no dressing. Outside of the above issues patient states that she has experienced a weight gain of approximately 100 pounds. She shares that she used to be regular with exercising, but has become so short of breath that she is intolerant of even walking. She has a history of a heart attack in 2017. She underwent a bypass procedure at [facility] in [place] for this, but during the workup for this issue was found to have lung cancer. Subsequently she underwent right lower lobectomy. She states that she was previously requiring continuous oxygen but was eventually able to be weaned. She is a former smoker. Previous work-up has included: Right upper quadrant ultrasound that showed normal wall thickness, normal common bile duct diameter, and cholelithiasis up to 2.4 cm stone size. ROS General General: Yes fatigue; No weight change, appetite, colon cancer, breast cancer or weakness HEENT HEENT: No difficulty swallowing, eye injury, eye surgery, swollen glands or hoarseness Endo Endocrine: No thyroid disease, diabetes mellitus, thyroid cancer, Hair loss, heat intolerance or cold intolerance Skin Skin: No rash or changing moles Breast Breast: No left breast lump, right breast lump, nipple discharge, breast pain, abnormal mammogram, abnormal US or breast enlargement Musc Musculoskeletal: No back problems, arthritis, rheumatoid arthritis, gout or joint pain Cardio Cardiovascular: Yes high blood pressure and heart attack; No murmur, pacemaker, heart disease, atrial fibrillation, heart stent, palpita tions, shortness of breat with exertion or chest pain Psych Psychiatric: Yes anxiety; No depression or hearing voices Resp Respiratory: Yes shortness of breath, No sleep apnea, No cough, No COPD, No asthma, No emphysema and No wheezing Gastro Gastrointestinal: No abdominal pain, Yes nausea or vomiting, Yes diarrhea, No constipation, No blood in stool, No acid reflux, No hemorrhoids, No ulcers, Yes gallbladder problem and No black,tarry stools Smith Hematologic: No blood thinners, No blood disorders, No bleeding, No anemia and No blood clots Neuro Neurologic: No system reviewed and no additional complaints, except as documented, No as per HPI, No abnormal gait, No abnormal hearing, No abnormal movements, No abnormal speech, No behavioral changes, No burning sensations, No confusion, No convulsions, No disequilibrium, No dizziness, No localized weakness, No frequent falls, No headache(s), No lack of coordination, No loss of vision, No memory loss, No numbness, No other visual disturbances, No radicular pain, No restless legs, No sensory deficit, No syncope, No tingling, No tremor(s), No weakness and No other Exam Const General: cooperative and anxious Nutritional Appearance: obese Orientation: alert, awake and oriented x3 GI Inspection: no incisions, obesity, striae and no visible herniation Palpation: tender in the RUQ; Mota's sign negative Assessment and Plan Assessment and Plan (1) Symptomatic cholelithiasis: Status: Acute Comment: Patient is a 57-year-old female who appears to have signs and symptoms of symptomatic cholelithiasis. Her history is consistent for pain derived from a gallbladder etiology yet there is no sign of cholecystitis on her recent ultrasound imaging. Further, her exam does not show evidence of a positive Mota sign. I have thus shared with her that I would like to consider her for a cholecystectomy, however, at present she is a prohibitive operative candidate on the account of progressive dyspnea and no recent follow-up for an extensive cardiopulmonary history. Thus I would like to proceed with having her reestablish care with cardiology and determining her operative risk for this nonemergent condition. In the meantime I advised her to continue a bland diet. She wishes to know what nonopiate medications she could take to manage the pain. She suggests that ketorolac was beneficial, however, I have advised her that this medication is best taken in a limited fashion and instead may recommend ursodiol in the future, but only if she has a long time until she is able to get into cardiology/through surgery. Plan: Defer any operative plans for cholecystectomy until after patient has had the opportunity to meet with cardiology (2) History of open heart surgery: Status: Acute Comment: Patient reports a history of CABG following PA in 2019. She shares that she has had no recent cardiology evaluation. Plan: Cardiology referral (3) History of PA (myocardial infarction): Status: Acute Comment: As above patient with PA in 2017 and progressive dyspnea. She has also experienced a weight gain of 100 pounds. No recent cardiology evaluation. Plan: Cardiology referral (4) Increasing shortness of breath: Status: Acute Comment: Patient with progressive dyspnea and history of PA, CABG, and right lung lobectomy (as well as prior smoker). Patient notes to a weight gain of approximately 100 pounds. Likely multifactorial, however, in the event that any part of this is considered modifiable or could be further optimized ahead of a general anesthetic would like to see patient evaluated by cardiology. Plan: Cardiology referral (5) Diarrhea: Status: Acute Qualifiers: Diarrhea type: presumed infectious Qualified Code(s): A09 - Infectious gastroenteritis and colitis, unspecified Comment: Patient describes several month history of nonbloody diarrhea. This is highly typical for her. She has had no prior colon screening. She appears to be at average risk for colon cancer. I shared with her that I would like to focus on her right upper quadrant symptoms and that any cholecystectomy may make diarrheal symptoms worse?at least transiently?postoperatively. I also shared with her my intent to proceed with a diagnostic colonoscopy once we are through with her gallbladder treatment. Plan: ? Tentatively plan for diagnostic colonoscopy following addressal of gallbladder Orders: Referrals Cardiology I25.2 - Old myocardial infarction, Z98.890 - Other specified postprocedural states I have examined the patient the following changes are noted: Patient has met with cardiology and they provided their clearance to proceed as planned with cholecystectomy. Patient had no inducible ischemia with nuclear medicine stress testing. She does report that she has had continued discomfort of her right upper quadrant. Otherwise there are new no new health changes. She denies any questions related the procedure we will proceed today for laparoscopic cholecystectomy with intraoperative cholangiography.
--- NOTE | 2023-08-09 07:30 | GALL_PTH ---
PATIENT: VIV NICOLE [place] [facility] [id number] AGE/SX: 57/F ROOM: RE08/09/[address]: Dr. Abel Lua MD : 1965 BED: DIS: 08/09/2023 SPEC #: [id number] RECD: 08/09/23 11:08 STATUS: AJVED LEOLA #: [id number] STEFANIA: 08/09/23 07:[address]: Abel Lua DEPT: SURGICAL PATHOLOGY RECD BY: Nikky Vallejo ENTERED: 08/09/23 12:18 SP TYPE: DANIELLE BHAT DR: Arlene Connolly, [facility], MEDICAL INTERN-C Tissues: Gallbladder, NOS Procedures: Surgery Specimen Level III HEADER OPERATION: Laparoscopic, Cholecystectomy with IOC PRE-OP DIAGNOSIS: Symptomatic cholelithiasis TISSUE SUBMITTED: Gallbladder MICROSCOPIC DIAGNOSIS Gallbladder, cholecystectomy: Chronic cholecystitis, cholelithiasis. AM/mr 4/8/24 MICROSCOPIC DESCRIPTION Slides are reviewed. GROSS DESCRIPTION Received is one container labeled with the patient's name and designated gallbladder. The specimen consists of a gallbladder measuring 10.5 cm in length and up to 4.0 cm in diameter. The external surface is pink-cardoso, smooth and glistening for the most part. Focally it is granular, hemorrhagic and contains cautery artifact. The gallbladder contains green-yellow mucoid bile and an ovoid black stones measuring in aggregate 2.2 x 2.0 x 1.8cm. The mucosa is bile-stained and without any mass lesions. The gallbladder wall measures up to 0.2 cm in thickness. Front End Wheel Loader Operator sections from the gallbladder and the cystic duct are submitted in one cassette. / KRYSTA: 08/09/23 TC:3 CPT: 43457
[2023-08-09] MEDS: Cefazolin 3 GM in 0.9% Normal Saline (100mL Bag) 100 ML IV (07:33)
[2023-08-09] MEDS: Bupivacaine Mpf 0.5% 30 ML VIAL (07:54)
--- NOTE | 2023-08-09 08:00 | RAD_ITS ---
STUDY: INTRAOPERATIVE CHOLANGIOGRAM. REASON FOR EXAM: Female, 57 years old. Laparoscopic cholecystectomy. FLUOROSCOPY TIME (if supplied): ( 26.4 seconds ) minutes/seconds. 18.29 mGy. TECHNIQUE: An intraoperative cholangiogram was performed by the surgeon. Imaging was provided. COMPARISON: None. FINDINGS: The common bile duct is unremarkable. No intraluminal filling defects are seen. There is free flow of contrast into the duodenum. The visualized intrahepatic biliary ducts are unremarkable as well. RAD/Cholangiogram/ O R,Initial IMPRESSION: Unremarkable intraoperative cholangiogram. Electronically Signed: Sergo Beckford MD at 10:19 EDT ,
--- NOTE | 2023-08-09 09:46 | OP.PCM_ITS ---
Report of Operation Date of Procedure: 08/09/23 Pre-Operative Diagnosis: Symptomatic cholelithiasis Post-Operative Diagnosis: Chronic cholecystitis Surgery/Procedure Performed:: Laparoscopic cholecystectomy with intraoperative cholangiography Surgeon: Abel Lua health information administrator: Roseline Fuentes Type of Anesthesia: General/Supplemental Anesthesiologist: Oracio Medina Specimen's removed: Gallbladder Estimated Blood Loss (mL): 20 Description of Procedure: After proper identification in the preoperative holding area the patient was brought to the operating room where she was positioned supine on the operating room table. Preoperatively SCDs were placed and antibiotics were administered. General anesthesia was then induced. Patient's abdomen was prepped and draped in usual sterile fashion. A formal timeout was conducted to confirm both patient and the procedure. Procedure was begun with a supraumbilical incision which was extended deeply down to the level of the fascia. The fascia was elevated and incised, as well as the peritoneum. Upon initial entry we found ourselves below the omentum so the pneumoperitoneum was released the trocar was removed and a finger sweep was performed to bluntly dissect away the omental adhesions to the anterior abdominal wall then the 12 mm balloon trocar was reinserted. Pneumoperitoneum was established at 15 mmHg. Three additional trocars (all 5 mm) were placed in the epigastrium and in the right upper quadrant. Inspection of the peritoneum revealed no inadvertent injury to the viscera below. The gallbladder was visualized with mild inflammation at the fundus, but progressively more inflammation approaching the infundibular region of the gallbladder. The gallbladder fundus was then grasped and elevated cephalad. Then, using careful dissection the peritoneum was opened and the structures of the hepatocystic triangle were delineated. Patient's anatomy was initially somewhat ambiguous as the gallbladder was folded upon itself over her dominant gallstone that had become lodged in the neck. There was also aberrant branching of the cystic artery and several of these branches were either selectively cauterized or clipped to control for any bleeding as we tried to expose the crotch of the gallbladder. Ultimately we were able to milk the patient's gallstone into the gallbladder body and identify the cystic duct. Once the critical view of safety was obtained, the cystic duct was singly clipped and partially divided with a ductotomy. Using an [place] clamp, a cholangiocatheter was fed into the proximal segment of the cystic duct and clamped into place. Under fluoroscopy a cholangiogram was then obtained showing a slightly shortened cystic duct flowing into a common bile duct with unobstructed antegrade flow of contrast into the duodenum. There was also retrograde flow through the common hepatic duct into the right and left hepatic ducts. Satisfied with this result, the cholangiocatheter was withdrawn and the proximal cystic duct was sealed with clips and the cystic duct was completely transected. The same process was used for the cystic artery. However, what appeared to be the main cystic artery was initially left intact as it largely tracked parallel to the gallbladder fossa and gave a small branches towards the gallbladder. These were sequentially ligated and until we reached the fundic portion of the gallbladder where additional clips were placed and it was fully transected. The gallbladder was then removed from the gallbladder fossa with the use of electrocautery. Minimal, selective electrocautery was used to obtain hemostasis in the gallbladder fossa. The gallbladder was placed in an Endo Catch bag and removed from the peritoneum. Morison's pouch was irrigated and the effluent was suctioned free of the peritoneum. Hemostasis was again confirmed and the specimen was removed from the peritoneal cavity. Given patient's habitus the supraumbilical 12 mm port site was closed under direct laparoscopic visualization using a Miki Haynes suture passer #1 PDS. Pneumoperitoneum w as evacuated and additional local anesthetic was infiltrated for postoperative pain control. A total of 30 mL of anesthetic was injected at the port sites. The skin of each port site was then closed in subcuticular fashion using 4-0 Monocryl. Steri-Strips and bandages were applied as dressings. Patient tolerated the procedure well without any apparent complications. On emergence from their anesthetic the patient was taken to PACU for ongoing recovery. Grafts/Implants Used: None Admit VTE Documentation VTE Present on Admission: Yes VTE Mechan Device Prophylaxis: SCD's Procedures Digestive 40xxx-49xxx: 50044 Laparo cholecystectomy/graph
--- NOTE | 2023-08-09 09:48 | EX.PCM.DISCH ---
Discharge Instructions Diet Discharge Diet: No restrictions Activity Discharge Activity: May Not Drive (No driving while using narcotic pain medication) and May Shower (Postoperative day 1) May shower in (days): 1 Ice area for (Minutes): 20 Lifting Restrictions: No lifting greater than 15 pounds for 2 weeks after surgery Dressing / Incision Call your doctor if your incision/area has: Continuous Slow Oozing, Increased Pain/ Swelling, Increased Redness, Foul Smelling Discharge and Swelling at the incision site Call your doctor if you observe: Fever of 101 or Higher Remove Dressing in: 2 days (Please leave Steri-Strips intact until they fall off spontaneously or are taken off at your follow-up visit) Cleanse incision/area with: Soap & Water Follow Up Care Please Follow Up With: Abel Lua MD When: 7-10days postop Test Results: Test results from this visit will be discussed in further detail at your follow-up appointment, if applicable. Discharge Plan Admission Primary Reason for Your Visit: Cholecystectomy Attending Provider: Abel Lua Primary Care Provider: Arlene Connolly Discharge Orders/Prescriptions Prescriptions: New oxycodone 5 mg tablet 5 mg PO Q6H PRN (Reason: pain) 5 Days Qty: 14 0RF Continued escitalopram oxalate 20 mg tablet 20 mg PO QDAY albuterol sulfate 90 mcg/actuation HFA aerosol inhaler 2 inh inhalation Q4-6H PRN (Reason: shortness of breath or wheezing) lisinopril 20 mg tablet 20 mg PO QDAY atorvastatin 40 mg tablet 40 mg PO QDAY Centrum Silver Women 8 mg iron-400 mcg-50 mcg tablet 1 tab PO DAILY aspirin 81 MG tablet 81 mg PO DAILY cyanocobalamin (vitamin B-12) [Vitamin B-12] 100 mcg tablet 200 mcg PO DAILY Breztri Aerosphere 160-9-4.8 mcg/actuation HFA aerosol inhaler 2 inh INHALATION BID Referrals / Follow Up: Arlene Connolly, BORING MACHINE OPERATOR PRODUCTION-C [Primary Care Provider] - Disposition Disposition (needs filled in before D/C Order can be placed): Home, Self Care
[2023-08-09] MEDS: oxyCODONE 5 MG Tablet PO (11:15)
[2023-08-09] MEDS: Acetaminophen 500 MG Tablet 1000 MG PO (11:15)
== END 2023-08-09 12:55 | disposition home or self-care (01) ==
LOC: SDC 05:47 → AC 05:51
PROVIDERS: PCP Nurse Practitioner Family; Referring Provider Surgery; Visit Provider Surgery
PROC: (CPT 47610; principal; 2023-08-09 07:10)
DX: K80.10 Calculus of gallbladder with chronic cholecystitis without obstruction (principal); I10 Essential (primary) hypertension; R06.02 Shortness of breath; I25.2 Old myocardial infarction; E66.9 Obesity, unspecified; I25.10 Atherosclerotic heart disease of native coronary artery without angina pectoris; E78.00 Pure hypercholesterolemia, unspecified; F41.9 Anxiety disorder, unspecified; F32.A Depression, unspecified; Z79.51 Long term (current) use of inhaled steroids; Z79.82 Long term (current) use of aspirin; Z79.899 Other long term (current) drug therapy; Z87.891 Personal history of nicotine dependence; Z95.1 Presence of aortocoronary bypass graft
CPT/HCPCS: 47563; 00790; 74300; 76000; 88304; 93005; J7120; J2405

== ENCOUNTER 2024-01-29 13:16 | Emergency (ER) | payer MEDICARE, MEDICAID, SELFPAY ==
[2024-01-29] VITALS (10 sets, daily range): BP systolic 120–155; BP diastolic 64–85; PULSE 90–132; RESP 14–28; TEMP 36.6; O2SAT 95–97; BMI 41.0
[2024-01-29 14:09] LABS: Mucous, Urine 0 SEEN /hpf (<or=2+); Red Blood Cells-Urine 0 SEEN /hpf (0-5); White Blood Cells 0 SEEN /hpf (0-5)
[2024-01-29 14:11] LABS: Absolute Lymphocyte Count 0.42 X10^3/uL (0.83-4.51); Absolute Neutrophil Count 5.6 X10^3/uL (2.0-7.7); Basophil# 0.01 X10^3/uL; Basophil% 0.2 % (0-1); Hematocrit 30.6 % (37-47); Lymphocyte # 0.42 X10^3/ul (0.83-4.51); Lymphocyte % 6.6 % (19-41); Mean Corp Hgb Conc 32.7 g/dL (32-36); Mean Corpuscular Hgb 30.6 pg (27.0-32.0); Mean Corpuscular Volume 93.6 fL (81-99); Mean Platelet Vol. 9.7 fl (6.2-12.0); Monocyte# 0.24 X10^3/uL; Monocyte% 3.8 % (0-10); NRBC Flagged by Analyzer 0 % (0-5); Neutrophil # 5.62 X10^3/uL (2.7-7.7); Neutrophil % 88.9 % (47-70); POSITIVE DIFFERENTIAL YES; Platelet Count 291 K/mm3 (150-450); RBC Distribution Width CV 14.2 % (11.6-14.6); RBC Distribution Width SD 43.6 fl (35.1-43.9); Red Blood Count 3.27 M/mm3 (4.2-5.4); White Blood Count 6.3 K/mm3 (4.4-11.0)
[2024-01-29 14:17] LABS: Color, Urine Yellow (Yellow); Glucose, Dipstick Normal (Normal); Ketone-Dipstick Negative (Negative); Leukocyte Esterase-Dipstick Negative /ul (Negative); Nitrite-Dipstick Negative (Negative); Occult Blood-Urine Negative /ul (Negative); Protein-Dipstick 15 mg/dl (Negative); Urine Bilirubin Dipstick Negative (Negative); Urine Clarity Sl. Cloudy (Clear); Urine Urobilinogen Normal (Normal)
[2024-01-29 14:21] LABS: Prothrombin Time (Protime)PT. 13.4 SECONDS (11.7-14.9)
--- NOTE | 2024-01-29 14:21 | RAD_ITS ---
STUDY: X-RAY CHEST REASON FOR EXAM: Female, 58 years old. Neutropenic Fever TECHNIQUE: PA and lateral views of the chest. COMPARISON: Comparison is made with prior study dated December 12, 2022. FINDINGS: Stable elevation of the right hemidiaphragm. There is no demonstrated pleural abnormality. Normal size heart. Normal mediastinum and alix. Normal visualized pulmonary arteries. There is atherosclerotic calcification of the aortic arch with tortuosity. There are diffuse degenerative changes of the visualized thoracic spine. Normal visualized ribs, clavicles, and shoulders. There is no demonstrated abnormality of the visualized soft tissue structures of the upper abdomen. RAD/Chest PA and Lateral IMPRESSION: Stable elevation of the right hemidiaphragm. The lungs are clear. Electronically Signed: Sergo Beckford MD at 14:30 EDT ,
[2024-01-29 14:22] LABS: Partial Thromboplast Time 22.2 Seconds (24.1-36.2)
[2024-01-29 14:25] LABS: Squamous Epithelial Cells - UA 0-5 SEEN /hpf (5-10)
[2024-01-29 14:26] LABS: Bacteria 1+ /hpf (None Seen)
[2024-01-29 14:37] LABS: AST(SGOT) 32 U/L (15-37); Alanine Aminotransfer ALT/SGPT 39 U/L (13-56); Albumin, Serum 3.6 g/dL (3.2-5.0); Alkaline Phosphatase 56 U/L (45-117); Anion Gap 5 (5-15); BUN 26 mg/dL (7-18); BUN/Creat Ratio 24.8 RATIO (10-20); Chloride 106 mmol/L (98-107); Creatinine, Serum 1.05 mg/dL (0.55-1.02); EST Glomerular Filtration Rate 57 mL/min (>60); Est Glom Filt Rate - Afr Amer 69 mL/min (>60); Estimated Creatinine Clearance 78.52 ml/min; Globulin 3.6 g/dL (2.2-4.2); Glucose 126 mg/dL (74-106); Potassium 3.9 mmol/L (3.5-5.1); Protein, Total 7.2 g/dL (6.4-8.2); Sodium Level 136 mmol/L (136-145)
--- NOTE | 2024-01-29 15:35 | CT_ITS ---
STUDY: CT ABDOMEN AND PELVIS WITH CONTRAST REASON FOR EXAM: Female, 58 years old. colitis RADIATION DOSAGE (If Supplied By Facility): CTDIvol = ( 13.71 ) mGy, DLP = ( 1453.43 ) mGycm TECHNIQUE: Transaxial images were obtained from the dome of the diaphragm to the symphysis pubis without oral contrast. IV 100mL Isovue-370 was administered. Sagittal and coronal images were reconstructed. Individualized dose optimization techniques were used for this CT. COMPARISON: None. FINDINGS: The visualized lung bases are unremarkable. Heart size is normal. There is mild coronary artery calcification.. Normal liver. Gallbladder has been removed surgically. Normal spleen. Normal pancreas. Normal bilateral adrenal glands. Normal right kidney. Normal left kidney. Normal visualized stomach. Normal small intestine. There is diffusely ahaustral appearance of the colon which may be consistent with inflammatory bowel disease although there is no appreciable inflammatory stranding in the fat.. No evidence for acute appendicitis. There is also no evidence for intraluminal GI hemorrhage at this time Mild atherosclerotic change of the aorta without evidence for aneurysm. Normal inferior vena cava. Normal retroperitoneum. Normal urinary bladder. Normal abdominal wall. Lumbar spine demonstrates degenerative changes CT/Abdomen/Pelvis W IV Cont ONLY IMPRESSION: Findings which may be consistent with nonspecific colitis although there is no acute inflammatory change seen at this time. No evidence for small bowel obstruction or other acute abnormality status post cholecystectomy Electronically Signed: Lenin Ralph MD at 17:45 EDT ,
--- NOTE | 2024-01-29 15:36 | EKG12_ITS ---
Test Reason : Blood Pressure : / mmHG Vent. Rate : 094 BPM Atrial Rate : 094 BPM P-R Int : 168 ms QRS Dur : 108 ms QT Int : 348 ms P-R-T Axes : 065 017 072 degrees QTc Int : 435 ms Normal sinus rhythm Minimal voltage criteria for LVH, may be normal variant ( [place] product ) Borderline ECG Confirmed by Abel Jaquez ([id number]), story editor JANES SANDHU ([id number]) on 01/31/2024 9:31:53 AM Referred By: Confirmed By:Abel Jaquez
--- NOTE | 2024-01-29 15:36 | EX.ED.DYSGE1 ---
HPI History of Present Illness Chief Complaint: General Illness Informant: patient Narrative Narrative: 58-year-old female presenting to the emergency room with suprapubic abdominal pain, vomiting and diarrhea. Patient currently undergoing chemo and radiation for lung cancer through [facility] locally here in [place] (Dr. Pino and Dr. Gunter). Patient states that she has been doing fairly well until Saturday when she got her last treatments. She states that she has been fatigued ever since. Today she woke with vomiting and a large amount of diarrhea. She describes the diarrhea as mucousy and possibly containing blood. Vomiting has improved. She states that she was recently pancytopenic on her lab test this week. Hemoglobin on the last 2 levels that she shows me a MyChart were 9.9 and 10.1. She denies any fever. She wonders if she may have a urinary tract infection. She has a history of coronary artery disease as well as COPD. [facility] Medical History (Updated 01/29/24 @ 18:[address] Julio Cesar Duque, DO) S/P radiation therapy Wears glasses Post-menopausal Cancer Depression Anxiety History of steroid therapy High cholesterol Gastric reflux Former smoker Emphysema, unspecified Shortness of breath on exertion History of echocardiogram History of stress test Cardiology follow-up encounter Chest pain SOB (shortness of breath) Abnormal stress test Edema of lower extremity CAD (coronary artery disease) Hyperlipidemia Thyroid nodule Prediabetes COPD (chronic obstructive pulmonary disease) History of non-ST elevation myocardial infarction (NSTEMI) (~08/08/16) History of [place] (myocardial infarction) Lung cancer HTN (hypertension) Home Medications ?Medication ?Instructions ?Recorded ?Last Taken ?Type aspirin 81 mg tablet,delayed 81 mg PO DAILY 10/20/16 07/28/23 History release escitalopram oxalate 20 mg tablet 20 mg PO QDAY 07/24/23 08/08/23 History lisinopril 20 mg tablet 20 mg PO QDAY 07/29/23 08/08/23 History albuterol sulfate 90 mcg/actuation 2 inh inhalation Q4-6H PRN 07/31/23 Unknown History aerosol inhaler shortness of breath or wheezing atorvastatin 40 mg tablet 40 mg PO QDAY 07/31/23 08/08/23 History [id number]-odya-[id number] 8 mg-folic 400 1 tab PO DAILY 07/31/23 08/08/23 History mcg-K 50 mcg-lutein 300 mcg tablet (Centrum Silver Women) budesonide 160 mcg-glycopyr 9 2 inh inhalation BID 08/07/23 08/08/23 History mcg-formot 4.8 mcg/actuation HFA inhaler (Breztri Aerosphere) cyanocobalamin (vitamin B-12) 100 200 mcg PO DAILY 08/07/23 08/08/23 History mcg tablet (Vitamin B-12) ciprofloxacin HCl 500 mg tablet 500 mg PO BID #14 TABLETS 01/29/24 Unknown Rx folic acid 1 mg tablet 1 mg PO DAILY 01/29/24 Unknown History metronidazole 500 mg tablet 500 mg PO Q8H #21 tabs 01/29/24 Unknown Rx Allergy/AdvReac Type Severity Reaction Status Date / Time No Known Allergies Allergy Verified 01/29/24 13:16 Family History Mother Cancer lung/uterine Father CVA (cerebral vascular accident) Heart disease Myocardial infarction 53 CAD (coronary artery disease) Sister Hyperlipidemia Brother AAA (abdominal aortic aneurysm) Diabetes Hyperlipidemia Surgical History (Updated 01/29/24 @ 15:39 by Ainsley Catherine) History of cholecystectomy History of cardiac catheterization S/P CABG x 1 (~08/10/16) History of lobectomy of lung Social History household members: other Smoking Status: Former smoker how long ago did patient quit smokin08/08/16 alcohol intake: current alcohol intake frequency: holidays/special occasions only substance use type: does not use caffeine: Yes Type: coffee Number of servings: 1 ROS ROS ED ROS Narrative Generalized fatigue Constitutional Constitutional ED: Denies chills, fever(s) or weight loss Eyes Eyes: Denies change in vision or diplopia ENT ENT ED: Denies ear pain, rhinorrhea or sore throat Cardiovascular Cardiovascular: Denies chest pain, orthopnea, palpitations or racing heartbeat Respiratory/Chest Respiratory/Chest: Denies cough, dyspnea or orthopnea Gastrointestinal Gastrointestinal: Reports abdominal pain, diarrhea, nausea and vomiting Genitourinary Genitourinary ED: Denies dysuria, hematuria or urinary frequency Musculoskeletal Musculoskeletal: Denies arthralgias or myalgias Integumentary Denies abscess or rash Neurologic Neurologic: Denies headache(s), paresthesias or weakness Psychiatric Psychiatric: Denies anxiety, depression, suicidal ideation or suicidal thoughts Endocrine Endocrinology: Denies polydipsia, polyphagia or polyuria Allergic/Immunologic Allergic/Immunologic ED: Denies mouth swelling, tongue swelling or urticaria EXAM Physical Exam Const Vital Signs: 01/29/24 13:16 01/29/24 13:18 01/29/24 15:16 Temperature 98 F 98 F Temperature Source Oral Oral Pulse Rate 132 H 132 H 94 Respiratory Rate 25 H 28 H Respiratory Effort Respiratory Pattern Blood Pressure 155/85 H 155/85 H 120/74 Blood Pressure Mean 108 108 89 Pulse Ox 97 97 97 Oxygen Delivery Method Room Air Room Air Room Air 01/29/24 15:18 01/29/24 15:35 01/29/24 15:53 Temperature 98 F Temperature Source Temporal Pulse Rate 99 Respiratory Rate 16 Respiratory Effort Normal Non-Labored Respiratory Pattern Normal Blood Pressure 120/74 Blood Pressure Mean 89 Pulse Ox 96 96 Oxygen Delivery Method Room Air Room Air 01/29/24 16:38 01/29/24 17:25 01/29/24 17:26 Temperature 98 F 98 F Temperature Source Temporal Temporal Pulse Rate 94 97 90 Respiratory Rate 16 14 Respiratory Effort Respiratory Pattern Blood Pressure 124/74 H 131/64 H 131/64 H Blood Pressure Mean 90 86 86 Pulse Ox 96 97 Oxygen Delivery Method Room Air Room Air 01/29/24 18:00 01/29/24 18:39 Temperature 98 F 98 F Temperature Source Temporal Pulse Rate 92 92 Respiratory Rate 18 18 Respiratory Effort Respiratory Pattern Blood Pressure 131/64 H 131/64 H Blood Pressure Mean 86 86 Pulse Ox 95 95 Oxygen Delivery Method Room Air Positive well nourished, well developed and obese General Appearance ED: well developed Nutritional Appearance: obese HEENT Reports normocephalic, head/scalp atraumatic and moist mucous membranes Eyes PERRL and EOMs intact bilaterally Neck no lymphadenopathy, supple and no JVD Resp normal respiratory effort and clear to auscultation bilaterally Cardio regular rate, regular rhythm and no murmurs GI Inspection: Negative for abdominal distention Auscultation: normoactive bowel sounds Palpation: soft and tender suprapubic; Negative for guarding or rebound tenderness present Back/Spine no CVA tenderness and normal ROM Extremity normal to inspection General Extremety ED: Negative for edema General Extremity: Negative for edema Neuro oriented x3 and CN's II-XII intact bilaterally Sensorium / Orientation: alert Motor Exam: strength 5/5 throughout Psych mental status grossly normal Mood & Affect: Negative for depressed or tearful Skin no rashes or lesions noted and no wounds MDM MDM MDM Narrative Medical decision making narrative: Differential diagnosis includes but not limited to colitis diverticulitis kidney stone UTI chemotherapy reaction dehydration electrolyte abnormality anemia White count 6.3 hemoglobin of 10 platelet count of 291 coags are normal. Electrolytes within normal limits BUN 26 creatinine 1.05 LFTs within normal limits urinalysis no obvious infection stool studies ordered CT of the pelvis with IV contrast was obtained which demonstrates changes that could be consistent with a nonspecific colitis. Looking specifically in the suprapubic region there may be some early inflammatory changes around the rectosigmoid area. Heart rate is down into the 90s. No evidence of hypotension. I believe the patient can be discharged home. Hemoglobin is stable. She is not having fevers. I will be writing for her to have Cipro and Flagyl. I did discuss the case with on-call oncology Dr. Esposito. They will follow-up with the patient tomorrow. Patient and family were updated note understanding the plan is comfortable with it. History & Record Review Discussion w/independent historian: Patient and Family Lab Data Attestation: I reviewed the patient's lab results. Labs: Laboratory Results - last 24 hr 01/29/24 13:55 WBC 6.3 RBC 3.27 L Hgb 10.0 L Hct 30.6 L MCV 93.6 MCH 30.6 MCHC 32.7 RDW Std Deviation 43.6 RDW Coeff of Jose 14.2 Plt Count 291 MPV 9.7 Immature Gran % (Auto) 0.500 Neut % (Auto) 88.9 H Lymph % (Auto) 6.6 L [place] % (Auto) 3.8 Eos % (Auto) 0.0 Baso % (Auto) 0.2 Absolute Neuts (auto) 5.6 Absolute Lymphs (auto) 0.42 L Nucleated RBC % 0 PT 13.4 INR 1.0 APTT 22.2 L Sodium 136 Potassium 3.9 Chloride 106 Carbon Dioxide 25.0 Anion Gap 5 BUN 26 H Creatinine 1.05 H Estim Creat Clear Calc 78.52 Est GFR (MDRD) Af Amer 69 Est GFR (MDRD) Non-Af 57 L BUN/Creatinine Ratio 24.8 H Glucose 126 H Calcium 9.0 Total Bilirubin 0.40 AST 32 ALT 39 Alkaline Phosphatase 56 Total Protein 7.2 Albumin 3.6 Globulin 3.6 Albumin/Globulin Ratio 1.0 Urine Color Yellow Urine Clarity Sl. Cloudy Urine pH 6.0 Ur Specific [place] 1.020 Urine Protein 15 H Urine Glucose (UA) Normal Urine Ketones Negative Urine Occult Blood Negative Urine Nitrite Negative Urine Bilirubin Negative Urine Urobilinogen Normal Ur Leukocyte Esterase Negative Urine RBC 0 SEEN Urine WBC 0 SEEN Ur Squamous Epith Cells 0-5 SEEN Urine Bacteria 1+ Urine Mucus 0 SEEN Radiography Diagnostic Testing: Clinical Impression(s) from Imaging Studies Chest X-Ray 01/29/24 14:21 IMPRESSION: Stable elevation of the right hemidiaphragm. The lungs are clear. Electronically Signed: Sergo Beckford MD at 14:30 EDT , Abdomen/Pelvis CT 01/29/24 15:35 IMPRESSION: Findings which may be consistent with nonspecific colitis although there is no acute inflammatory change seen at this time. No evidence for small bowel obstruction or other acute abnormality status post cholecystectomy Electronically Signed: Lenin Ralph MD at 17:45 EDT , EKG Initial EKG: Attestation: I personally reviewed and interpreted this EKG as follows: Comments: Normal sinus Management Discussion w/another healthcare provider: [employer] (Dr. Esposito) Discharge Plan Triage Chief Complaint: General Illness ED Provider: Julio Cesar Duque Dx/Rx/DC Orders Clinical Impression: Colitis, Abdominal pain, Lung cancer Instructions: ED Understanding Colitis Prescriptions: New metronidazole 500 mg tablet 500 mg PO Q8H Qty: 21 0RF ciprofloxacin HCl 500 mg tablet 500 mg PO BID Qty: 14 0RF No Action escitalopram oxalate 20 mg tablet 20 mg PO QDAY albuterol sulfate 90 mcg/actuation HFA aerosol inhaler 2 inh inhalation Q4-6H PRN (Reason: shortness of breath or wheezing) lisinopril 20 mg tablet 20 mg PO QDAY atorvastatin 40 mg tablet 40 mg PO QDAY Centrum Silver Women 8 mg iron-400 mcg-50 mcg tablet 1 tab PO DAILY aspirin 81 MG tablet 81 mg PO DAILY cyanocobalamin (vitamin B-12) [Vitamin B-12] 100 mcg tablet 200 mcg PO DAILY Breztri Aerosphere 160-9-4.8 mcg/actuation HFA aerosol inhaler 2 inh INHALATION BID folic acid 1 mg tablet 1 mg PO DAILY Primary Care Provider: Arlene Connolly Referrals: Baljit Pino MD [Med Staff - Active Staff] - 3-5 Days if not improving Arlene Connolly, INFECTION PREVENTION COORDINATOR-C [Primary Care Provider] - Print Language: Arabic Disposition Disposition: Home, Self Care Discharge Date/Time: 01/29/24 18:40
[2024-01-29] MEDS: 0.9% Normal Saline (1000mL) 1,000 ML 999 ML IV (15:52)
[2024-01-29] MEDS: 0.9% Normal Saline (1000mL) 1,000 ML 200 ML IV (16:41)
--- NOTE | 2024-01-29 17:25 | ED.RN ---
Patient prompted for stool sample. Pt requesting to finish fluid bolus before she attempts to provide sample.
--- NOTE | 2024-01-29 18:22 | ED.RN ---
Stool specimen sent to lab
== END 2024-01-29 18:40 | disposition home or self-care (01) ==
PROVIDERS: Emergency Provider Emergency Medicine; PCP Nurse Practitioner Family; Visit Provider Emergency Medicine
DX: K52.9 Noninfective gastroenteritis and colitis, unspecified (principal); C34.90 Malignant neoplasm of unspecified part of unspecified bronchus or lung; E78.00 Pure hypercholesterolemia, unspecified; I25.10 Atherosclerotic heart disease of native coronary artery without angina pectoris; I10 Essential (primary) hypertension; Z79.82 Long term (current) use of aspirin; Z79.51 Long term (current) use of inhaled steroids; Z79.899 Other long term (current) drug therapy; Z87.891 Personal history of nicotine dependence
CPT/HCPCS: 71046; 74177; 80053; 81001; 83630; 85025; 85610; 85730; 87177; 87209; 87493; 87506; 93005; 99285; J7030; Q9967; A4216

== ENCOUNTER → 2024-02-19 | Outpatient (CLI) | payer MEDICARE, MEDICAID, SELFPAY ==
--- NOTE | 2024-02-19 12:53 | ECHOCS_ITS ---
Reason For Study: CAD/ASHD Procedure This was a 2D Doppler, Color Flow transthoracic echocardiogram. Technically difficult study. Unable to perform Strain Analysis due to needed use of Definity. Patient had a hard time tolerating the probe in the apical window. Exam performed in department. Left Ventricle Normal LV size. The left ventricular ejection fraction is 45 %. Stage 1 diastolic dysfunction. There is mild to moderate global hypokinesis of the left ventricle. Right Ventricle Normal RV size. Normal systolic function. Atria Normal left atrium. Normal right atrium. Mitral Valve Normal mitral valve. Tricuspid Valve Normal tricuspid valve. Mild tricuspid valve insufficiency. Pulmonary artery systolic pressure is 26 mmHg. Aortic Valve Trisinus/trileaflet aortic valve. Pulmonic Valve Normal pulmonic valve. Great Vessels Normal aortic root. The pulmonary artery is normal size. Inferior vena cava collapse with respiration. Pericardium/Pleural No pericardial effusion. Medication 22 gauge I.V. with prn adaptor inserted into left arm. Technically difficult IV access. Access obtained in left AC. Diluted definity 3ml given slow IV push to enhance endocardial definition. MMode/2D Measurements & Calculations LVIDd: 4.9 cm IVSd: 1.1 cm Ao root diam: 3.3 cm LVIDs: 3.9 cm LVPWd: 1.2 cm RVDd: 3.2 cm FS: 20.5 % LAV(MOD-sp4): 22.1 ml LVAd ap4: 33.2 cm2 SV(MOD-sp4): 57.3 ml LVLd ap4: 7.2 cm EDV(MOD-sp4): 121.3 ml EDV(sp4-el): 129.4 ml LVAs ap4: 22.2 cm2 LVLs ap4: 6.6 cm ESV(MOD-sp4): 64.0 ml ESV(sp4-el): 63.2 ml EF(MOD-sp4): 47.2 % EF(sp4-el): 51.2 % SV(sp4-el): 66.2 ml LA A4 area: 10.8 cm2 LA dimension(2D): 3.5 cm RA A4 area: 9.0 cm2 Time Measurements MV dec time: 0.12 sec Doppler Measurements & Calculations MV E max vernon: 80.5 cm/sec Lat Peak E' Vernon: 9.3 cm/sec Med Peak E' Vernon: 7.3 cm/sec MV A max vernon: 98.6 cm/sec E/E' lat: 8.7 E/E' med: 11.1 MV E/A: 0.82 MV V2 max: 118.3 cm/sec MV dec slope: 646.4 cm/sec2 Ao V2 max: 151.0 cm/sec MV max P.6 mmHg Ao max P.1 mmHg MV V2 mean: 76.7 cm/sec MV mean P.7 mmHg MV V2 VTI: 17.0 cm LV V1 max: 101.0 cm/sec PA V2 max: 104.8 cm/sec TR max vernon: 237.2 cm/sec LV V1 max P.1 mmHg PA V2 mean: 72.2 cm/sec TR max P.5 mmHg LV V1 mean P.9 mmHg LV V1 mean: 60.7 cm/sec LV V1 VTI: 19.9 cm ECHO/Echo Complete W/ Contrast Interpretation Summary Normal LV size. The left ventricular ejection fraction is 45 %. There is mild to moderate global hypokinesis of the left ventricle. Stage 1 diastolic dysfunction. Pulmonary artery systolic pressure is 26 mmHg. Contrast injection was performed. Ordering Physician: Dayana Pereira Referring Physician: aDyana Pereira Performed By: Rafat Gleason RCS
== END | disposition home or self-care (01) ==
LOC: CVS 12:47
PROVIDERS: PCP Nurse Practitioner Family; Referring Provider Internal Medicine Cardiovascular Disease; Visit Provider Internal Medicine Cardiovascular Disease
DX: I25.10 Atherosclerotic heart disease of native coronary artery without angina pectoris (principal)
CPT/HCPCS: 93306; Q9957; A4216; C8929

== ENCOUNTER 2024-03-13 09:43 | Outpatient (CLI) | payer MEDICARE, MEDICAID, SELFPAY ==
[2024-03-13 10:23] VITALS: BP 111/88; PULSE 106; RESP 16; TEMP 36.1; O2SAT 98; BMI 40.4
[2024-03-13] MEDS: Acetaminophen 325 MG Tablet 650 MG PO (10:37)
[2024-03-13] MEDS: 0.9% Normal Saline (500mL Bag) 500 ML 15 ML IV (11:29)
[2024-03-13] MEDS: 0.9% NaCl VAD Flush IV (11:29)
[2024-03-13 12:10] VITALS: BP 98/62; PULSE 95; RESP 16; TEMP 36.4; O2SAT 98
[2024-03-13 13:10] VITALS: BP 110/64; PULSE 90; RESP 16; TEMP 36.4; O2SAT 98
[2024-03-13 14:13] VITALS: BP 109/69; PULSE 93; RESP 16; TEMP 36.4; O2SAT 100
== END 2024-03-13 23:59 | disposition home or self-care (01) ==
LOC: MEDOUTP 09:45
PROVIDERS: PCP Nurse Practitioner Family; Referring Provider Internal Medicine Hematology & Oncology; Visit Provider Internal Medicine Hematology & Oncology
DX: D64.81 Anemia due to antineoplastic chemotherapy (principal)
CPT/HCPCS: 36430; 86850; 86900; 86901; 86920; 86922; J7040; P9016; A4216

== ENCOUNTER 2024-10-08 11:05 | Outpatient (CLI) | payer MEDICARE, MEDICAID, SELFPAY ==
[2024-10-08 11:40] LABS: Absolute Lymphocyte Count 1.12 X10^3/uL (0.83-4.51); Absolute Neutrophil Count 7.7 X10^3/uL (2.0-7.7); Basophil# 0.05 X10^3/uL; Basophil% 0.5 % (0-1); Hematocrit 38.1 % (37-47); Hemoglobin 12.2 g/dL (12.0-15.0); Lymphocyte # 1.12 X10^3/ul (0.83-4.51); Lymphocyte % 11.5 % (19-41); Mean Corpuscular Hgb 29.8 pg (27.0-32.0); Mean Corpuscular Volume 93.2 fL (81-99); Mean Platelet Vol. 9.1 fl (6.2-12.0); Monocyte# 0.74 X10^3/uL; Monocyte% 7.6 % (0-10); NRBC Flagged by Analyzer 0 % (0-5); Neutrophil # 7.66 X10^3/uL (2.7-7.7); Neutrophil % 78.3 % (47-70); Platelet Count 247 K/mm3 (150-450); RBC Distribution Width CV 13.4 % (11.6-14.6); RBC Distribution Width SD 45.1 fl (35.1-43.9); Red Blood Count 4.09 M/mm3 (4.2-5.4); White Blood Count 9.8 K/mm3 (4.4-11.0)
[2024-10-08 12:12] LABS: ALB/GLOB Ratio 1.2 RATIO (0.9-2.4); AST(SGOT) 16 U/L (<=31); Alanine Aminotransfer ALT/SGPT 15 U/L (<=34); Albumin, Serum 3.7 g/dL (3.4-4.8); Alkaline Phosphatase 59 U/L (35-104); Anion Gap 12 (5-15); BUN 23 mg/dL (4-19); BUN/Creat Ratio 22.5 RATIO (10-20); Calcium,Total 9.3 mg/dL (7.6-11.0); Carbon Dioxide 26.8 mmol/L (21.0-32.0); Chloride 102 mmol/L (98-108); Creatinine, Serum 1.04 mg/dL (0.70-1.20); EST Glomerular Filtration Rate 62 (>60); Glucose 107 mg/dL (70-99); Potassium 3.7 mmol/L (3.3-5.1); Pro- Brain NATRIURETIC PEPTIDE 90 pg/mL (<=900); Protein, Total 6.8 g/dL (5.9-8.4); Sodium Level 141 mmol/L (133-145); Total Bilirubin 0.35 mg/dL (0.00-1.30)
== END 2024-10-08 23:59 | disposition home or self-care (01) ==
PROVIDERS: PCP Nurse Practitioner Family; Referring Provider Nurse Practitioner Family; Visit Provider Nurse Practitioner Family
DX: R06.00 Dyspnea, unspecified (principal); J44.9 Chronic obstructive pulmonary disease, unspecified; E66.9 Obesity, unspecified; I25.10 Atherosclerotic heart disease of native coronary artery without angina pectoris
CPT/HCPCS: 36591; 80053; 83880; 85025; A4216

== ENCOUNTER → 2024-10-30 | Outpatient (CLI) | payer MEDICARE, MEDICAID, SELFPAY ==
--- NOTE | 2024-10-30 10:21 | RAD_ITS ---
PROCEDURE: CHEST PA AND LATERAL 10/30/2024 REASON FOR EXAM: CHRONIC RESPIRATORY FAILURE WITH HYPOXIA TECHNIQUE: CHEST PA AND LATERAL COMPARISON: Prior chest radiograph dated January 29, 2024. FINDINGS: Hardware: A right-sided port a catheter is seen with the tip at the junction of the superior vena cava and right atrium. Heart: Heart size upper limits of normal Mediastinum: The mediastinal contour is unremarkable. Lungs: Elevation of the right hemidiaphragm. Opacification of the right lung apex. Patchy infiltrate/nodular densities in the left lower lobe. Follow-up recommended. Bones: Degenerative changes are identified within the thoracic spine. RAD/Chest PA and Lateral IMPRESSION: Opacification of the right lung apex with patchy infiltrate/nodular densities i n the left lower lobe. Reading Location: [id number]
== END | disposition home or self-care (01) ==
PROVIDERS: PCP Nurse Practitioner Family; Referring Provider Nurse Practitioner Family; Visit Provider Nurse Practitioner Family
DX: J96.11 Chronic respiratory failure with hypoxia (principal)
CPT/HCPCS: 71046

== ENCOUNTER → 2024-11-16 | Outpatient (CLI) | payer MEDICARE, MEDICAID, SELFPAY ==
--- NOTE | 2024-11-16 07:23 | ECHOCS_ITS ---
Reason For Study Reason For Study: SOB Procedure This was a 2D Doppler, Color Flow transthoracic echocardiogram. The study was technically difficult. Exam performed in department. Left Ventricle Normal LV size. Mild concentric left ventricular hypertrophy. Mild LV generalized hypokinesis. Estimated LVEF 45%. Stage I diastolic dysfunction. Right Ventricle Normal right ventricle. Atria The left and right atria are normal. Mitral Valve Trivial mitral valve insufficiency. Tricuspid Valve Trivial tricuspid valve insufficiency. Normal pulmonary artery pressure. Aortic Valve Trisinus/trileaflet aortic valve. Pulmonic Valve The pulmonic valve is not well visualized. Great Vessels Normal sized aortic root. Pericardium/Pleural No pericardial effusion. Medication Diluted definity 1.0ml given slow IV push to enhance endocardial definition. MMode/2D Measurements & Calculations LVIDd: 5.4 cm IVSd: 0.91 cm Ao root diam: 3.2 cm LVIDs: 3.9 cm LVPWd: 1.2 cm RVDd: 3.0 cm FS: 27.9 % LAV(MOD-bp): 34.1 ml LVAd ap4: 30.6 cm2 LVAd ap2: 28.7 cm2 LAV(MOD-bp) Indexed: 14.8 ml/m2 LVLd ap4: 8.2 cm LVLd ap2: 8.3 cm LAV(MOD-sp2): 36.2 ml EDV(MOD-sp4): 92.3 ml EDV(MOD-sp2): 81.5 ml LAV(MOD-sp4): 30.3 ml EDV(sp4-el): 96.5 ml EDV(sp2-el): 84.5 ml LVAs ap4: 21.6 cm2 LVAs ap2: 20.9 cm2 LVLs ap4: 7.5 cm LVLs ap2: 7.9 cm ESV(MOD-sp4): 52.8 ml ESV(MOD-sp2): 47.8 ml ESV(sp4-el): 52.9 ml ESV(sp2-el): 47.0 ml EF(MOD-sp4): 42.8 % EF(MOD-sp2): 41.4 % EF(sp4-el): 45.2 % SV(MOD-sp4): 39.5 ml SV(MOD-sp2): 33.8 ml SV(sp4-el): 43.6 ml SI(MOD-sp4): 17.1 ml/m2 SI(MOD-sp2): 14.6 ml/m2 LA A4 area: 13.2 cm2 LA dimension(2D): 3.2 cm RA A4 area: 12.0 cm2 TAPSE: 1.6 cm Time Measurements MV dec time: 0.25 sec Doppler Measurements & Calculations MV E max vernon: 79.5 cm/sec Lat Peak E' [place]: 11.5 cm/sec Med Peak E' [place]: 6.1 cm/sec MV A max vernon: 96.1 cm/sec E/E' lat: 6.9 E/E' med: 13.1 MV E/A: 0.83 MV dec slope: 323.0 cm/sec2 Ao V2 max: 170.9 cm/sec LV V1 max: 111.0 cm/sec Ao max P.7 mmHg LV V1 max P.9 mmHg Ao V2 mean: 126.1 cm/sec LV V1 mean P.9 mmHg Ao mean P.9 mmHg LV V1 mean: 80.8 cm/sec Ao V2 VTI: 37.4 cm LV V1 VTI: 23.0 cm AV (velocity ratio): 0.61 PA V2 max: 118.5 cm/sec TR max vernon: 251.3 cm/sec TR max P.3 mmHg ECHO/Echo Complete W/ Contrast Interpretation Summary Mild concentric left ventricular hypertrophy. Mild LV generalized hypokinesis. Estimated LVEF 45%. Stage I diastolic dysfunct ion. Ordering Physician: Jaime Lugo Referring Physician: Arlene Connolly Performed By: Laura Holden, NORMA
--- NOTE | 2024-11-16 15:42 | STRESSREP_ITS ---
Stress Test Report Date: 11/16/2024 Procedure: Pharmacologic stress nuclear imaging study Indications: Dyspnea Consent: Per the patient Procedure: The patient underwent pharmacologic (Regadenoson 0.4mg ) evaluation with a peak heart rate of 101 beats per minute (63%predicted maximal heart rate) and a peak blood pressure of 120/82 mmHg. The baseline ECG demonstrated sinus rhythm. The peak pharmacologic ECG did not show any ischemic changes. No significant cardiac dysrhythmias noted. There was no complaint of chest discomfort during pharmacologic infusion or recovery. The patient was injected with 15.0 millicuries of technetium 99m Cardiolite and subsequently rest SPECT Cardiolite nuclear imaging was obtained in the horizontal long, vertical long, and short axis views. The patient underwent pharmacologic (Regadenoson) evaluation. The patient was injected with 44.8 millicuries of technetium 99m Cardiolite and subsequently stress SPECT Cardiolite nuclear imaging was obtained in the horizontal long, vertical long, and short axis views. A gated Cardiolite study at peak stress was obtained. The examination was stopped secondary to completion of protocol. Rest and stress SPECT Cardiolite nuclear imaging status post realignment, normalization, and attenuation correction demonstrate no fixed or reversible perfusion defects. There is end systolic thickening and brightening. The gated Cardiolite study demonstrates myocardial thickening and inward wall motion. The reported LVEF is 59%. Impression: 1. Pharmacologic (Regadenoson) evaluation 2. Peak pharmacologic ECG with with no diagnostic ischemic changes. 3. No significant cardiac dysrhythmias noted. 5. Rest and stress SPECT Cardiolite nuclear imaging demonstrate relative uniform tracer uptake and myocardial perfusion appearing within normal limits. 6. The gated Cardiolite study reports an LVEF of 59%. This note was generated with [employer] software. It may contain incorrect words, spelling, and punctuation that were not noted in checking the note before signing.
== END | disposition home or self-care (01) ==
PROVIDERS: PCP Nurse Practitioner Family; Referring Provider Nurse Practitioner Family; Visit Provider Nurse Practitioner Family
DX: R06.09 Other forms of dyspnea (principal); J44.9 Chronic obstructive pulmonary disease, unspecified; E66.9 Obesity, unspecified; I25.10 Atherosclerotic heart disease of native coronary artery without angina pectoris
CPT/HCPCS: 78452; 93017; 93306; A9500; Q9957; A4216; C8929; J2785